=== PATIENT | male | born 1970 | race Caucasian/White ===

== ENCOUNTER 2016-10-24 22:00 | Inpatient (IN) | payer BC ==
[2016-10-24] MEDS ORDERED: DILTIAZEM 125 MG in SODIUM CHLORIDE 0.9% 100 ML IV ONE (22:02)
[2016-10-24] MEDS ORDERED: ASPIRIN 81 MG CHEW PO STA (22:02)
[2016-10-24] MEDS ORDERED: SODIUM CHLORIDE 0.9% 500 ML IV STA (22:02)
[2016-10-24] MEDS ORDERED: SODIUM CHLORIDE 0.9% 1,000 ML IV STA ×2 (22:02)
[2016-10-24] MEDS ORDERED: DILTIAZEM 5 MG/ML 5 ML VIAL IVP STA (22:02)
[2016-10-24 22:27] LABS: ALT 42 U/L (21-72); AST 36 U/L (17-59); Alkaline Phosphatase 56 U/L (38-126); Anion Gap 10 mmol/L; Blood Urea Nitrogen 21 mg/dL (9-20); Calcium 8.8 mg/dL (8.4-10.2); Carbon Dioxide 23 mmol/L (22-30); Chloride 102 mmol/L (98-107); Glucose 226 mg/dL (74-99); Magnesium 2.1 mg/dL (1.6-2.3); Non-African American GFR(MDRD) 58 (>60 ml/min/1.73 sqM); Potassium 4.1 mmol/L (3.5-5.1); Sodium 135 mmol/L (137-145); Total Bilirubin 0.8 mg/dL (0.2-1.3); Total Protein 6.8 g/dL (6.3-8.2)
[2016-10-24 22:31] LABS: INR 1.3 (<1.1); Partial Thromboplastin Time 25.8 sec (22.0-30.0)
[2016-10-24 22:39] LABS: Basophils # (A) 0.1 k/uL (0-0.2); Basophils % (A) 1 %; CH 27.8; CHCM 31.6; Eosinophils # (A) 0.1 k/uL (0-0.7); Eosinophils % (A) 1 %; HCT 47.7 % (39.0-53.0); HDW 2.39; HGB 15.2 gm/dL (13.0-17.5); Luc # (Auto) 0.17; Luc % (Auto) 1; Lymphocytes # (A) 1.5 k/uL (1.0-4.8); Lymphocytes % (A) 10 %; MCH 28.1 pg (25.0-35.0); MCHC 31.8 g/dL (31.0-37.0); MCV 88.4 fL (80.0-100.0); Mean Platelet Volume 7.7; Monocytes # (A) 0.4 k/uL (0-1.0); Monocytes % (A) 3 %; Neutrophils # (A) 12.4 k/uL (1.3-7.7); Neutrophils % (A) 85 %; RBC 5.39 m/uL (4.30-5.90); RDW 13.5 % (11.5-15.5); WBC 14.7 k/uL (3.8-10.6); WBC (Perox) 13.97
[2016-10-24 22:42] LABS: Creatine Kinase 90 U/L (55-170)
[2016-10-24 22:55] LABS: Troponin I <0.012 ng/mL (0.000-0.034)
[2016-10-24 22:56] LABS: Creatine Kinase MB 3.8 ng/mL (0.0-2.4)
--- NOTE | 2016-10-24 23:19 | ED ---
General Adult HPI - General Chief complaint: Arrhythmia/Palpitations Stated complaint: Tachycardic Time Seen by Provider: 10/24/16 22:01 Source: patient, EMS, RN notes reviewed, old records reviewed Mode of arrival: EMS Limitations: no limitations - History of Present Illness Initial comments: This is a 47-year-old male to the ED with significant SOB, weakness, and symcope event. Patient is complaining of severe shortness of breath, denying chest pain. Patient states he does have history of A. fib, has been taking all medications as prescribed, no fevers cough congestion of rate of lately, no travel history no sick contacts no change in medications. - Related Data Home Medications Medication Instructions Recorded Confirmed Edoxaban Tosylate [Savaysa] 60 mg PO DIRECTED 11/17/15 10/24/16 [place]cy 150 Mg 150 mg PO DAILY 10/24/16 10/24/16 Lutein 10 mg PO DAILY 10/24/16 10/24/16 Magnesium Oxide [Mag-Ox] 250 mg PO DAILY 10/24/16 10/24/16 [place]-3 Fatty Acids/Fish Oil [Fish 1 cap PO DAILY 10/24/16 10/24/16 Oil 1,000 mg Softgel] Potassium 99 mg PO DAILY 10/24/16 10/24/16 [place]'s Wort 300 mg PO DAILY 10/24/16 10/24/16 Allergies Allergy/AdvReac Type Severity Reaction Status Date / Time No Known Allergies Allergy Verified 10/24/16 22:14 Review of Systems ROS Statement: Those systems with pertinent positive or pertinent negative responses have been documented in the HPI. ROS Other: All systems not noted in ROS Statement are negative. Past Medical History Past Medical History: Atrial Fibrillation, CVA/TIA, Pneumonia, Thyroid Disorder Additional Past Medical History / Comment(s): STRESS TEST A FEW YEARS AGO; "minor stroke 11/2015 - stated that no residuals like weakness but left side is now more sensitive to pain and hot and cold History of Any Multi-Drug Resistant Organisms: None Reported Past Surgical History: Appendectomy, Cardiac Ablation, Heart Catheterization Additional Past Surgical History / Comment(s): cardioversion 11/2014 Past Anesthesia/Blood Transfusion Reactions: No Reported Reaction Past Psychological History: Anxiety Smoking Status: Never smoker Past Alcohol Use History: None Reported Past Drug Use History: None Reported - Past Family History Father Family Medical History: Hypertension Mother Family Medical History: AFIB, Chest Pain / Angina, Coronary Artery Disease (CAD) Additional Family Medical History / Comment(s): hx of pacemaker; mom at 39 Brother(s) Family Medical History: Coronary Artery Disease (CAD), Myocardial Infarction ([place] ), Pneumonia Additional Family Medical History / Comment(s): at age 29 General Exam Limitations: no limitations General appearance: alert, anxious, in distress Head exam: Present: atraumatic, normocephalic, normal inspection Eye exam: Present: normal appearance, PERRL, EOMI. Absent: scleral icterus, conjunctival injection, periorbital swelling ENT exam: Present: normal exam, mucous membranes moist Neck exam: Present: normal inspection. Absent: tenderness, meningismus, lymphadenopathy Respiratory exam: Present: normal lung sounds bilaterally. Absent: respiratory distress, wheezes, rales, rhonchi, stridor Cardiovascular Exam: Present: tachycardia, irregular rhythm, normal heart sounds. Absent: systolic murmur, diastolic murmur, rubs, gallop, clicks GI/Abdominal exam: Present: soft, normal bowel sounds. Absent: distended, tenderness, guarding, rebound, rigid Extremities exam: Present: normal inspection, full ROM, normal capillary refill. Absent: tenderness, pedal edema, joint swelling, calf tenderness Back exam: Present: normal inspection Neurological exam: Present: alert, oriented X3, CN II-XII intact Psychiatric exam: Present: normal affect, normal mood Skin exam: Present: warm, dry, intact, normal color. 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 No chest pain. EKG Findings - EKG Comments: EKG Findings:: EKG shows SVT rate of 160, QRS 86, QTC 511. Repeat. EKG shows sinus rhythm rate of 78, [place] 346, QRS 80, QTC 465 Medical Decision Making - Lab Data Result diagrams: 10/24/16 22:07 10/24/16 22:07 Lab Results 10/24/16 10/24/16 10/24/16 Range/Units 22:07 22:07 22:07 WBC 14.7 H (3.8-10.6) k/uL RBC 5.39 (4.30-5.90) m/uL Hgb 15.2 (13.0-17.5) gm/dL Hct 47.7 (39.0-53.0) % MCV 88.4 (80.0-100.0) fL MCH 28.1 (25.0-35.0) pg MCHC 31.8 (31.0-37.0) g/dL RDW 13.5 (11.5-15.5) % Plt Count 197 (150-450) k/uL Neutrophils % 85 % Lymphocytes % 10 % Monocytes % 3 % Eosinophils % 1 % Basophils % 1 % Neutrophils # 12.4 H (1.3-7.7) k/uL Lymphocytes # 1.5 (1.0-4.8) k/uL Monocytes # 0.4 (0-1.0) k/uL Eosinophils # 0.1 (0-0.7) k/uL Basophils # 0.1 (0-0.2) k/uL PT (9.0-12.0) sec INR (<1.1) APTT (22.0-30.0) sec Sodium 135 L (137-145) mmol/L Potassium 4.1 (3.5-5.1) mmol/L Chloride 102 (98-107) mmol/L Carbon Dioxide 23 (22-30) mmol/L Anion Gap 10 mmol/L BUN 21 H (9-20) mg/dL Creatinine 1.33 H (0.66-1.25) mg/dL Est GFR (MDRD) Af Amer >60 (>60 ml/min/1.73 sqM) Est GFR (MDRD) Non-Af 58 (>60 ml/min/1.73 sqM) Glucose 226 H (74-99) mg/dL Calcium 8.8 (8.4-10.2) mg/dL Magnesium 2.1 (1.6-2.3) mg/dL Total Bilirubin 0.8 (0.2-1.3) mg/dL AST 36 (17-59) U/L ALT 42 (21-72) U/L Alkaline Phosphatase 56 (38-126) U/L Total Creatine Kinase 90 (55-170) U/L CK-MB (CK-2) 3.8 H* (0.0-2.4) ng/mL CK-MB (CK-2) Rel Index 4.2 Troponin I <0.012 (0.000-0.034) ng/mL Total Protein 6.8 (6.3-8.2) g/dL Albumin 3.8 (3.5-5.0) g/dL Lipase 187 (23-300) U/L 10/24/16 Range/Units 22:07 WBC (3.8-10.6) k/uL RBC (4.30-5.90) m/uL Hgb (13.0-17.5) gm/dL Hct (39.0-53.0) % MCV (80.0-100.0) fL MCH (25.0-35.0) pg MCHC (31.0-37.0) g/dL RDW (11.5-15.5) % Plt Count (150-450) k/uL Neutrophils % % Lymphocytes % % Monocytes % % Eosinophils % % Basophils % % Neutrophils # (1.3-7.7) k/uL Lymphocytes # (1.0-4.8) k/uL Monocytes # (0-1.0) k/uL Eosinophils # (0-0.7) k/uL Basophils # (0-0.2) k/uL PT 13.0 H (9.0-12.0) sec INR 1.3 (<1.1) APTT 25.8 (22.0-30.0) sec Sodium (137-145) mmol/L Potassium (3.5-5.1) mmol/L Chloride (98-107) mmol/L Carbon Dioxide (22-30) mmol/L Anion Gap mmol/L BUN (9-20) mg/dL Creatinine (0.66-1.25) mg/dL Est GFR (MDRD) Af Amer (>60 ml/min/1.73 sqM) Est GFR (MDRD) Non-Af (>60 ml/min/1.73 sqM) Glucose (74-99) mg/dL Calcium (8.4-10.2) mg/dL Magnesium (1.6-2.3) mg/dL Total Bilirubin (0.2-1.3) mg/dL AST (17-59) U/L ALT (21-72) U/L Alkaline Phosphatase (38-126) U/L Total Creatine Kinase (55-170) U/L CK-MB (CK-2) (0.0-2.4) ng/mL CK-MB (CK-2) Rel Index Troponin I (0.000-0.034) ng/mL Total Protein (6.3-8.2) g/dL Albumin (3.5-5.0) g/dL Lipase (23-300) U/L Critical Care Time Critical Care Time: Yes Total Critical Care Time: 31 Disposition Clinical Impression: Atrial fibrillation with RVR, Syncope Disposition: ADMITTED IP TO THIS HOSP Condition: Fair Referrals: None,Stated [Primary Care Provider] - 1-2 days
[2016-10-24] MEDS ORDERED: MORPHINE SULFATE 4 MG/ML SYRINGE IV PRN (23:23)
[2016-10-24] MEDS ORDERED: NITROGLYCERIN SL TABS 0.4 MG TAB SUBLINGUAL PRN (23:23)
--- NOTE | 2016-10-24 23:37 | XR ---
EXAM: XR Chest, 2 Views CLINICAL HISTORY: Reason: Chest Pain TECHNIQUE: Frontal and lateral views of the chest. COMPARISON: Chest x-ray 01/05/16 FINDINGS: Lungs: No consolidation.. Pleural space: Unremarkable. No pneumothorax. Heart: Cardiomegaly. Mediastinum: Unremarkable. Bones/joints: Unremarkable. IMPRESSION: Cardiomegaly. No overt pulmonary edema. No consolidation.
[2016-10-25] MEDS ORDERED: DILTIAZEM 5 MG/ML 5 ML VIAL IVP STA (00:42)
[2016-10-25] MEDS: SODIUM CHLORIDE 0.9% 1,000 ML IV SCH ×3 (02:46→19:46)
[2016-10-25 03:02] VITALS: BMI 27.8
[2016-10-25] MEDS ORDERED: SODIUM CHLORIDE 0.9% 500 ML IV ONE (04:44)
[2016-10-25] MEDS ORDERED: ONDANSETRON 4 MG/2 ML VIAL IVP PRN (04:45)
[2016-10-25 05:00] LABS: Cholesterol 173 mg/dL (<200); HDL Cholesterol 40 mg/dL (40-60); Triglycerides 72 mg/dL (<150)
[2016-10-25 05:03] LABS: Creatine Kinase 83 U/L (55-170)
[2016-10-25 05:15] LABS: Troponin I <0.012 ng/mL (0.000-0.034)
[2016-10-25 05:16] LABS: Creatine Kinase MB 3.6 ng/mL (0.0-2.4)
[2016-10-25] MEDS ORDERED: ASPIRIN 325 MG TAB PO SCH (09:00)
[2016-10-25] MEDS ORDERED: METOPROLOL TARTRATE 50 MG TAB PO SCH (09:00)
--- NOTE | 2016-10-25 10:58 | P.CRDCN ---
History of Present Illness Consult date: 10/25/16 Requesting physician: Nicholas Burgess Consult reason: atrial fibrillation Chief complaint: Heart racing History of present illness: This is a 46-year-old gentleman patient of Dr. Falcon's, known history of prior atrial fibrillation with 3 prior ablations as well as cardioversions. History of hypothyroidism, hyperlipidemia. Patient also underwent a cardiac catheterization in the past which revealed normal coronary arteries. Most recent electrical artery eversion was performed in December of last year. Patient then was scheduled to undergo an ablation in April of last year. According to the patient, his insurance changed and therefore he lost his primary care provider, since April he has not been taking his medications , and he also did not come in for his ablation for these reasons. He is on Savaysa for anticoagulation, states that he gets an upset stomach and therefore only takes it a couple times a week. As far as all of his other medications go , he has not been on any of those since April. Echocardiogram with Doppler study which was performed in June of last year revealed an ejection fraction of 50-55%. presents to the hospital on this occasion with his heart racing very fast. He states that he was at a gas station yesterday when he noticed his heart going extremely fast. He states that on arrival home he sat down, bear down and his heart rate normalized. He then walked up to the bathroom and again took off going extremely fast. Patient again states he bear down, went back to bed and his heart rate slowed down. A third time while laying in bed his heart rate again took off, he called EMS, states then that he got up because he was nauseous, had an episode of vomiting and states that he passed out. EKG on arrival here showed a supraventricular tachycardia with a heart rate of 168. Patient was initiated on IV Cardizem drip, this morning EKG shows normal sinus rhythm with a long first-degree AV block and nonspecific ST- T wave changes. Chest x-ray reveals cardiomegaly with no overt pulmonary edema. White blood cell count 14.7, hemoglobin 15.2, potassium 4.1, BUN 21, creatinine 1.3. Troponin 0.012, 0.012. BNP level 981. At the time of my examination this morning, patient denies any chest discomfort, no difficulty in breathing, no dizziness or lightheadedness. Past Medical History Past Medical History: Atrial Fibrillation, CVA/TIA, Pneumonia, Thyroid Disorder Additional Past Medical History / Comment(s): STRESS TEST A FEW YEARS AGO; "minor stroke 11/2015 - stated that no residuals like weakness but left side is now more sensitive to pain and hot and cold History of Any Multi-Drug Resistant Organisms: None Reported Past Surgical History: Appendectomy, Cardiac Ablation, Heart Catheterization Additional Past Surgical History / Comment(s): cardioversion 11/2014 Past Anesthesia/Blood Transfusion Reactions: No Reported Reaction Past Psychological History: Anxiety Smoking Status: Never smoker Past Alcohol Use History: None Reported Past Drug Use History: None Reported - Past Family History Father Family Medical History: Hypertension Mother Family Medical History: AFIB, Chest Pain / Angina, Coronary Artery Disease (CAD) Additional Family Medical History / Comment(s): hx of pacemaker; mom at 39 Brother(s) Family Medical History: Coronary Artery Disease (CAD), Myocardial Infarction ([place] ), Pneumonia Additional Family Medical History / Comment(s): at age 29 Medications and Allergies Home Medications Medication Instructions Recorded Confirmed Type Edoxaban Tosylate [Savaysa] 60 mg PO DIRECTED 11/17/15 10/24/16 History [place] 150 Mg 150 mg PO DAILY 10/24/16 10/24/16 History Lutein 10 mg PO DAILY 10/24/16 10/24/16 History Magnesium Oxide [Mag-Ox] 250 mg PO DAILY 10/24/16 10/24/16 History [place]-3 Fatty Acids/Fish Oil [Fish 1 cap PO DAILY 10/24/16 10/24/16 History Oil 1,000 mg Softgel] Potassium 99 mg PO DAILY 10/24/16 10/24/16 History [place]'s Wort 300 mg PO DAILY 10/24/16 10/24/16 History Allergies Allergy/AdvReac Type Severity Reaction Status Date / Time No Known Allergies Allergy Verified 10/24/16 22:14 Physical Exam Vitals: Vital Signs Temp Pulse Pulse Resp BP BP Pulse Ox 10/25/16 08:00 98 F 147 H 16 100/56 100 10/25/16 03:20 152 H 14 10/25/16 02:30 146 H 16 98/71 100 10/25/16 02:17 149 H 16 90/69 100 10/25/16 02:07 145 H 16 93/70 100 10/25/16 02:01 97.9 F 149 H 18 92/67 100 10/25/16 01:50 145 H 16 98/72 100 10/25/16 01:23 97.3 F L 152 H 16 92/56 99 10/25/16 00:48 85 18 95/71 100 10/25/16 00:42 167 H 18 88/46 100 10/24/16 23:42 81 18 96/64 100 Intake and Output 10/24/16 10/25/16 10/25/16 22:59 06:59 14:59 Intake Total 900 Balance 900 Intake: IV 30 Diltiazem 125 mg In 30 Sodium Chloride 0.9% 100 ml @ 15 MG/HR 15 mls/hr IV .Q8H20M ONE Rx#: [id number] Intake, IV Titration 870 Amount Diltiazem 125 mg In 20 Sodium Chloride 0.9% 100 ml @ 15 MG/HR 15 mls/hr IV .Q8H20M ONE Rx#: [id number] Sodium Chloride 0.9% 1, 350 000 ml @ 100 mls/hr IV . Q10H MARICHUY Rx#:[id number] Sodium Chloride 0.9% 500 500 ml @ 999 mls/hr IV .Q31M ONE Rx#:[id number] Other: Weight 75.9 kg PHYSICAL EXAMINATION: HEENT: Head is atraumatic, normocephalic. Pupils equal, round. Neck is supple. There is no elevated jugular venous pressure. HEART EXAMINATION: Heart S1, S2 normal. No murmur or gallop heard. CHEST EXAMINATION: Lungs are clear to auscultation and precussion. No chest wall tenderness is noted on palpation or with deep breathing. ABDOMEN: Soft, nontender. Bowel sounds are heard. No organomegaly noted. EXTREMITIES: 2+ peripheral pulses with no evidence of peripheral edema and no calf tenderness noted. NEUROLOGIC patient is awake, alert and oriented -3. . Results 10/24/16 22:07 10/24/16 22:07 Cardiac Enzymes 10/25/16 Range/Units 04:30 CK-MB (CK-2) 3.6 H* (0.0-2.4) ng/mL Troponin I <0.012 (0.000-0.034) ng/mL Lipids 10/25/16 Range/Units 04:30 Triglycerides 72 (<150) mg/dL Cholesterol 173 (<200) mg/dL HDL Cholesterol 40 (40-60) mg/dL Current Medications Generic Name Dose Route Start Last Admin Trade Name Freq PRN Reason Stop Dose Admin Aspirin 325 mg 10/25/16 09:00 10/25/16 08:31 Aspirin PO 325 mg DAILY MARICHUY Administration Sodium Chloride 1,000 mls @ 100 mls/hr 10/24/16 23:30 10/25/16 02:46 Saline 0.9% IV Not Given .Q10H MARICHUY Metoprolol Tartrate 50 mg 10/25/16 09:00 10/25/16 08:30 Lopressor PO 50 mg BID MARICHUY Administration Morphine Sulfate 4 mg 10/24/16 23:23 Morphine Sulfate (Inj) IV Q4HR PRN Chest Pain Nitroglycerin 0.4 mg 10/24/16 23:23 10/25/16 04:30 Nitrostat SUBLINGUAL 0.4 mg Q5M PRN Administration Chest Pain Ondansetron HCl 4 mg 10/25/16 04:45 Zofran IVP Q6HR PRN Nausea And Vomiting Intake and Output 10/24/16 10/25/16 10/25/16 22:59 06:59 14:59 Intake Total 900 Balance 900 Intake: IV 30 Diltiazem 125 mg In 30 Sodium Chloride 0.9% 100 ml @ 15 MG/HR 15 mls/hr IV .Q8H20M ONE Rx#: [id number] Intake, IV Titration 870 Amount Diltiazem 125 mg In 20 Sodium Chloride 0.9% 100 ml @ 15 MG/HR 15 mls/hr IV .Q8H20M ONE Rx#: [id number] Sodium Chloride 0.9% 1, 350 000 ml @ 100 mls/hr IV . Q10H MARICHUY Rx#:[id number] Sodium Chloride 0.9% 500 500 ml @ 999 mls/hr IV .Q31M ONE Rx#:[id number] Other: Weight 75.9 kg EKG Interpretations (text) Initial EKG showed a supraventricular tachycardia, this morning's EKG shows a normal sinus rhythm with a long first-degree AV block. Assessment and Plan Plan: Assessment and plan #1 supraventricular tachycardia in a patient with known history of prior SVT and prior atrial tachycardia. Patient has history of prior ablations and electrical cardioversions. Currently in normal sinus rhythm with a long first- degree AV block. #2 noncompliance with medications, patient has not been taking his medication since April. #3 history of paroxysmal atrial fibrillation #4 hypothyroidism #5 hyperlipidemia #6 no prior documented coronary artery disease, patient did undergo cardiac catheterization in the past which revealed normal coronary arteries. Most recent echocardiogram with Doppler study was performed in December of last year which revealed a normal left ventricular systolic function. #7 acute on chronic renal insufficiency. Plan We will reinitiate the patient's Savaysa, decrease aspirin to 81 mg daily. Resume the patient's beta nany at 25 mg one tablet by mouth twice a day. Check free T4 and TSH. Repeat echocardiogram with Doppler study. Further recommendations to follow. DNP note has been reviewed, I agree with a documented findings and plan of care. Patient was seen and examined.
[2016-10-25 11:39] LABS: Creatine Kinase 70 U/L (55-170)
[2016-10-25 11:48] LABS: Troponin I <0.012 ng/mL (0.000-0.034)
[2016-10-25 11:49] LABS: Creatine Kinase MB 3.1 ng/mL (0.0-2.4)
[2016-10-25] MEDS: EDOXABAN TOSYLATE 60 MG TABLET PO SCH (13:45)
[2016-10-25] MEDS: METOPROLOL TARTRATE 25 MG TAB PO SCH ×2 (13:47→19:45)
--- NOTE | 2016-10-25 17:20 | P.HPIM ---
History of Present Illness H&P Date: 10/25/16 Chief Complaint: Heart palpitation 46-year-old male presented on the day of admission to the emergency room via the EMS system with a chief complaint of having shortness of breath weakness and heart palpitation felt like he was going to pass out. Patient does have a history of atrial fibrillation in the emergency room the patient was noted to be in atrial fibrillation heart rate was in the 160s. Patient was seen in the emergency room admitted to the services of the attending. Patient does have a history as mentioned of atrial fibrillation has undergone 3 prior ablations as well as cardioversions. Patient additionally has had a heart catheterization in the past which showed normal coronary arteries. According to the patient he had a change in his insurance and was scheduled to undergo a ablation in April 2016 but did not because he did not have insurance. According to the patient he had not been taking this medication according to the patient he also lost his primary care provider due to insurance issues. As mentioned the patient was seen in the emergency room admitted with a cardiology consultation requested. On arrival the patient's heart rate was in the 160s. The 12-lead EKG showed supraventricular tachycardia. Patient was initiated on IV Cardizem drip. The patient was being seen this morning the EKG was showing sinus rhythm rate in the 70s Review of Systems Essentially unremarkable except as mentioned in the present illness Past Medical History Past Medical History: Atrial Fibrillation, CVA/TIA, Pneumonia, Thyroid Disorder Additional Past Medical History / Comment(s): STRESS TEST A FEW YEARS AGO; "minor stroke 11/2015 - stated that no residuals like weakness but left side is now more sensitive to pain and hot and cold History of Any Multi-Drug Resistant Organisms: None Reported Past Surgical History: Appendectomy, Cardiac Ablation, Heart Catheterization Additional Past Surgical History / Comment(s): cardioversion 11/2014 Past Anesthesia/Blood Transfusion Reactions: No Reported Reaction Past Psychological History: Anxiety Smoking Status: Never smoker Past Alcohol Use History: None Reported Past Drug Use History: None Reported - Past Family History Father Family Medical History: Hypertension Mother Family Medical History: AFIB, Chest Pain / Angina, Coronary Artery Disease (CAD) Additional Family Medical History / Comment(s): hx of pacemaker; mom at 39 Brother(s) Family Medical History: Coronary Artery Disease (CAD), Myocardial Infarction ([place] ), Pneumonia Additional Family Medical History / Comment(s): at age 29 Medications and Allergies Home Medications Medication Instructions Recorded Confirmed Type Edoxaban Tosylate [Savaysa] 60 mg PO DIRECTED 11/17/15 10/24/16 History [place] 150 Mg 150 mg PO DAILY 10/24/16 10/24/16 History Lutein 10 mg PO DAILY 10/24/16 10/24/16 History Magnesium Oxide [Mag-Ox] 250 mg PO DAILY 10/24/16 10/24/16 History [place]-3 Fatty Acids/Fish Oil [Fish 1 cap PO DAILY 10/24/16 10/24/16 History Oil 1,000 mg Softgel] Potassium 99 mg PO DAILY 10/24/16 10/24/16 History [place]'s Wort 300 mg PO DAILY 10/24/16 10/24/16 History Allergies Allergy/AdvReac Type Severity Reaction Status Date / Time No Known Allergies Allergy Verified 10/24/16 22:14 Physical Exam Vitals: Vital Signs Temp Pulse Pulse Resp BP BP Pulse Ox 10/25/16 16:00 97.2 F L 68 16 100/60 98 10/25/16 12:00 98.2 F 76 16 103/67 100 10/25/16 08:00 98 F 147 H 16 100/56 100 10/25/16 03:20 152 H 14 10/25/16 02:30 146 H 16 98/71 100 10/25/16 02:17 149 H 16 90/69 100 10/25/16 02:07 145 H 16 93/70 100 10/25/16 02:01 97.9 F 149 H 18 92/67 100 10/25/16 01:50 145 H 16 98/72 100 10/25/16 01:23 97.3 F L 152 H 16 92/56 99 10/25/16 00:48 85 18 95/71 100 10/25/16 00:42 167 H 18 88/46 100 10/24/16 23:42 81 18 96/64 100 Intake and Output 10/25/16 10/25/16 10/25/16 06:59 14:59 22:59 Intake Total 900 800 Balance 900 800 Intake: IV 30 Diltiazem 125 mg In 30 Sodium Chloride 0.9% 100 ml @ 15 MG/HR 15 mls/hr IV .Q8H20M ONE Rx#: [id number] Intake, IV Titration 870 800 Amount Diltiazem 125 mg In 20 Sodium Chloride 0.9% 100 ml @ 15 MG/HR 15 mls/hr IV .Q8H20M ONE Rx#: [id number] Sodium Chloride 0.9% 1, 350 800 000 ml @ 100 mls/hr IV . Q10H [place]UY Rx#:[id number] Sodium Chloride 0.9% 500 500 ml @ 999 mls/hr IV .Q31M ONE Rx#:[id number] Other: # Voids 2 # Bowel Movements 1 Weight 75.9 kg Physical exam Gen. alert and oriented 3 pleasant cooperative denying any heart palpitations denying chest pain Heart S1-S2 audible and regular monitor sinus rhythm heart rate in the 70s Lungs essentially clear adequate air movement on room air Abdomen soft nontender reports no nausea vomiting Extremities no edema Results CBC & Chem 7: 10/24/16 22:07 10/26/16 14:34 Labs: Abnormal Lab Results - Last 24 Hours (Table) 10/25/16 10/25/16 10/25/16 Range/Units 04:30 04:30 10:41 CK-MB (CK-2) 3.6 H* 3.1 H* (0.0-2.4) ng/mL LDL Cholesterol, Calc 119 H (0-99) mg/dL Thrombosis Risk Factor Assmnt - Choose All That Apply Any of the Below Risk Factors Present?: Yes Each Factor Represents 1 point: Age 41-60 years, Obesity (BMI >25) Thrombosis Risk Factor Assessment Total Risk Factor Score: 2 Thrombosis Risk Factor Assessment Level: Low Risk Assessment and Plan Plan: Impression Present on admission shortness of breath heart palpitations suspect due to atrial fibrillation with a rapid ventricular response History of a heart catheterization in the past which showed normal coronary arteries History of prior ablations and cardioversions per heart atrial fibrillation Hypothyroid on supplements Hyperlipidemia History of paroxysmal atrial fibrillation Noncompliant with medication had not been taking medication since April 2016 Present on admission acute on chronic renal failure stage 3 Plan Resume home meds as appropriate Continue with recommendations by cardiology service Follow-up on pending thyroid studies Follow-up on echocardiogram Further recommendations pending will follow DVT and GI prophylaxsis The above dictated assessment and findings were discussed with dr kendall Nguyen and the plan of care have been dictated as directed. Jovana Veras nurse practitioner acting as a scribe for dr argueta
[2016-10-25] MEDS ORDERED: DILTIAZEM 125 MG in SODIUM CHLORIDE 0.9% 100 ML IV SCH (21:00)
[2016-10-26] MEDS ORDERED: ALPRAZolam 0.25 MG TAB PO PRN (02:41)
--- NOTE | 2016-10-26 07:06 | ECHOF ---
Referral Reason:afib MEASUREMENTS -------- HEIGHT: 165.1 cm WEIGHT: 75.7 kg BP: 100/56 IVSd: 1.3 cm (0.6 - 1.1) LVIDd: 3.6 cm (3.9 - 5.3) LVPWd: 1.2 cm (0.6 - 1.1) IVSs: 1.8 cm LVIDs: 2.0 cm LVPWs: 1.7 cm LAESV Index (A-L): 103.31 ml/m Ao Diam: 3.3 cm (2.0 - 3.7) AV Cusp: 2.3 cm (1.5 - 2.6) LA Diam: 4.4 cm (2.7 - 3.8) MV EXCURSION: 20.477 mm (> 18.000) MV EF SLOPE: 80 mm/s (70 - 150) EPSS: 0.2 cm MV E Alex: 0.94 m/s MV DecT: 309 ms MV A Alex: 0.58 m/s MV E/A Ratio: 1.63 AR PHT: 1681 ms RAP: 5.00 mmHg RVSP: 11.51 mmHg FINDINGS -------- Resting tachycardia (HR>100bpm). This was a technically good study. There is mild concentric left ventricular hypertrophy. Overall left ventricular systolic function is normal with, an EF between 55 - 60 %. The right ventricle is normal in size and function. LA is severely dilated >40 ml/m2 RA appears enlarged. Aortic valve is trileaflet and is mildly thickened. There is mild aortic regurgitation. There is trace mitral regurgitation. Trace tricuspid regurgitation present. The right ventricular systolic pressure, as measured by Doppler, is 11.51mmHg. Pulmonic valve appears structurally normal. The aortic root size is normal. The pericardium is normal. CONCLUSIONS -------- 1. Resting tachycardia (HR>100bpm). 2. There is trace mitral regurgitation. 3. Trace tricuspid regurgitation present. 4. The right ventricular systolic pressure, as measured by Doppler, is 11.51mmHg. 5. Pulmonic valve appears structurally normal. 6. The aortic root size is normal. 7. The pericardium is normal. 8. This was a technically good study. 9. There is mild concentric left ventricular hypertrophy. 10. Overall left ventricular systolic function is normal with, an EF between 55 - 60 %. 11. The right ventricle is normal in size and function. 12. LA is severely dilated >40 ml/m2 13. RA appears enlarged. 14. Aortic valve is trileaflet and is mildly thickened. 15. There is mild aortic regurgitation. [employer] ABATEMENT WORKER: Dayanara Israel RDCS
[2016-10-26] MEDS: METOPROLOL TARTRATE 25 MG TAB PO SCH ×2 (07:57→18:52)
[2016-10-26] MEDS: ASPIRIN 81 MG CHEW PO SCH (07:57)
[2016-10-26] MEDS: EDOXABAN TOSYLATE 60 MG TABLET PO SCH (07:57)
--- NOTE | 2016-10-26 11:56 | CDI ---
In responding to this query, please exercise your independent professional judgment. The [facility] Coding Staff and Clinical Documentation Specialists appreciate your assistance in clarifying documentation, maintaining compliance with coding guidelines, accurately documenting patients condition and capturing severity of illness. The fact that a question is asked does not imply that any particular answer is desired or expected. Communication forms are a method of clarifying documentation and are not made part of the Legal Health Record. Thank you in advance for your clarification. Last Revision, April 2015 Jose Luis Maya [address] [place] [address] Documentation Clarification Form Date: 10/26/2016 11:49:00 AM From: Kim Mays RN, CCDS Admit Date: 10/24/2016 11:23:00 PM Patient Name: Yannick Roberts Visit Number: [id number] Dr. Nicholas Burgess/Jovana Veras CNP History/Risk Factors: 01/05/16 Patients baseline BUN/CR/GFR:30/1. Patient presents with a BUN/CR/GFR of: 21/1.33/58 Clinical Indicators: 10/25 Cardiology Consult: "Acute on chronic renal insuffiency." Treatment: IVF: 2L IVF Bolus followed by 100 cc/hr In order to capture the severity of condition, please clarify if the condition signifies: Acute renal failure Please specify (if known): Cortical, Medullary, or Tubular Necrosis? Acute kidney injury Acute on chronic renal failure Chronic renal failure, please stage Chronic kidney disease (CKD) and please stage Stage 1 GFR >90 Stage 2 GFR 60-89 Stage 3 GFR 30-59 Stage 4 GFR 15-29 Stage 5 GFR <15 ESRD Unable to determine Other, specify Please document in your progress notes and discharge summary in order to capture severity of illness and risk of mortality. Include clinical findings that support your diagnosis. FYI: Press F11 to launch patient chart. Place X here if this finding has no clinical significance, is not applicable or if you are not able to provide any additional documentation. MTDD
[2016-10-26] MEDS ORDERED: DILTIAZEM 5 MG/ML 5 ML VIAL IVP STA (13:17)
[2016-10-26] MEDS: SODIUM CHLORIDE 0.9% 1,000 ML IV SCH ×2 (14:02→18:52)
[2016-10-26] MEDS: DILTIAZEM 125 MG in SODIUM CHLORIDE 0.9% 100 ML IV SCH ×2 (14:04→23:23)
--- NOTE | 2016-10-26 14:11 | XR ---
EXAMINATION TYPE: XR chest 2V DATE OF EXAM: 10/26/2016 1:41 PM COMPARISON: NONE TECHNIQUE: PA and lateral views submitted. HISTORY: Shortness of breath FINDINGS: The lungs are clear and there is no pneumothorax, pleural effusion, or focal pneumonia. Heart is en larged. Mild degenerative change of the spine. Interstitium stable. Linear changes right lung base ty pical of atelectasis. IMPRESSION: 1. No acute process.
--- NOTE | 2016-10-26 14:26 | P.PN ---
Subjective Principal diagnosis: Graham lorenzo This is a 46-year-old gentleman patient of Dr. Powell's, known history of prior atrial fibrillation with 3 prior ablations as well as cardioversions. History of hypothyroidism, hyperlipidemia. Patient also underwent a cardiac catheterization in the past which revealed normal coronary arteries. Most recent electrical artery eversion was performed in December of last year. Patient then was scheduled to undergo an ablation in April of last year. According to the patient, his insurance changed and therefore he lost his primary care provider, since April he has not been taking his medications , and he also did not come in for his ablation for these reasons. He is on Savaysa for anticoagulation, states that he gets an upset stomach and therefore only takes it a couple times a week. As far as all of his other medications go , he has not been on any of those since April. Echocardiogram with Doppler study which was performed in June of last year revealed an ejection fraction of 50-55%. presents to the hospital on this occasion with his heart racing very fast. Patient was found to be in atrial fibrillation with rapid ventricular response. He was reinitiated yesterday on his Savaysa, he was also started on a Cardizem drip, throughout the night his heart rate went up into the 140s to 150s, at the time of my examination this morning her heart rate continued to be in the 140s. He was given an additional IV bolus of Cardizem and IV Cardizem drip dose was increased to 15. TSH level was normal. No lab data today. She did complain of feeling mildly short of breath today did not reveal any significant findings. Objective - Vital Signs Vital signs: Vital Signs Temp 97.5 F L 10/26/16 12:00 Pulse 130 H 10/26/16 12:00 Resp 16 10/26/16 12:00 BP 106/71 10/26/16 12:00 Pulse Ox 98 10/26/16 12:00 Intake & Output 10/25/16 10/26/16 10/26/16 18:59 06:59 18:59 Intake Total 1040 360 Balance 1040 360 Weight 78.9 kg Intake: Intake, IV Titration 800 Amount Sodium Chloride 0.9% 1, 800 000 ml @ 100 mls/hr IV . Q10H [facility] Rx#:[id number] Oral 240 360 Other: Voiding Method Toilet Toilet Urinal Urinal # Voids 2 2 # Bowel Movements 1 - Exam PHYSICAL EXAMINATION: HEENT: Head is atraumatic, normocephalic. Pupils equal, round. Neck is supple. There is no elevated jugular venous pressure. HEART EXAMINATION: Heart S1, S2 normal. No murmur or gallop heard. CHEST EXAMINATION: Lungs are clear to auscultation and precussion. No chest wall tenderness is noted on palpation or with deep breathing. ABDOMEN: Soft, nontender. Bowel sounds are heard. No organomegaly noted. EXTREMITIES: 2+ peripheral pulses with no evidence of peripheral edema and no calf tenderness noted. NEUROLOGIC patient is awake, alert and oriented -3. - Labs CBC & Chem 7: 10/24/16 22:07 10/24/16 22:07 Assessment and Plan Plan: Assessment and plan #1 Atrial tachycardia in a patient with known history of prior SVT and prior atrial tachycardia. Patient has history of prior ablations and electrical cardioversions. Currently in normal sinus rhythm with a long first-degree AV block. #2 noncompliance with medications, patient has not been taking his medication since April. #3 history of paroxysmal atrial fibrillation #4 hypothyroidism #5 hyperlipidemia #6 no prior documented coronary artery disease, patient did undergo cardiac catheterization in the past which revealed normal coronary arteries. Most recent echocardiogram with Doppler study was performed in December of last year which revealed a normal left ventricular systolic function. #7 acute on chronic renal insufficiency. Plan We will give the patient an additional bolus of IV Cardizem and increase the drip to 15 mg per hour. Continue other current medications. DNP note has been reviewed, I agree with a documented findings and plan of care. Patient was seen and examined.
[2016-10-26 15:14] LABS: Anion Gap 7 mmol/L; Blood Urea Nitrogen 22 mg/dL (9-20); Calcium 8.4 mg/dL (8.4-10.2); Carbon Dioxide 21 mmol/L (22-30); Chloride 110 mmol/L (98-107); Glucose 94 mg/dL (74-99); Non-African American GFR(MDRD) >60 (>60 ml/min/1.73 sqM); Sodium 138 mmol/L (137-145)
[2016-10-26 15:25] LABS: Potassium 5.5 mmol/L (3.5-5.1)
[2016-10-27] MEDS: DILTIAZEM 125 MG in SODIUM CHLORIDE 0.9% 100 ML IV SCH ×3 (00:53→22:11)
[2016-10-27] MEDS: SODIUM CHLORIDE 0.9% 1,000 ML IV SCH ×4 (06:53→17:02)
[2016-10-27 07:20] LABS: Basophils % (A) 0 %; CH 27.9; CHCM 31.9; Eosinophils # (A) 0.3 k/uL (0-0.7); Eosinophils % (A) 3 %; HCT 46.1 % (39.0-53.0); HDW 2.49; HGB 14.4 gm/dL (13.0-17.5); Luc # (Auto) 0.16; Luc % (Auto) 2; Lymphocytes # (A) 2.1 k/uL (1.0-4.8); Lymphocytes % (A) 20 %; MCH 27.5 pg (25.0-35.0); MCHC 31.3 g/dL (31.0-37.0); MCV 88.1 fL (80.0-100.0); Mean Platelet Volume 7.7; Monocytes # (A) 0.6 k/uL (0-1.0); Monocytes % (A) 5 %; Neutrophils # (A) 7.6 k/uL (1.3-7.7); Neutrophils % (A) 71 %; RBC 5.24 m/uL (4.30-5.90); RDW 13.8 % (11.5-15.5); WBC 10.7 k/uL (3.8-10.6); WBC (Perox) 10.98
[2016-10-27 07:47] LABS: ALT 75 U/L (21-72); AST 52 U/L (17-59); Alkaline Phosphatase 45 U/L (38-126); Anion Gap 6 mmol/L; Blood Urea Nitrogen 17 mg/dL (9-20); Calcium 8.5 mg/dL (8.4-10.2); Carbon Dioxide 25 mmol/L (22-30); Chloride 109 mmol/L (98-107); Glucose 88 mg/dL (74-99); Magnesium 1.9 mg/dL (1.6-2.3); Non-African American GFR(MDRD) >60 (>60 ml/min/1.73 sqM); Potassium 4.3 mmol/L (3.5-5.1); Sodium 140 mmol/L (137-145); Total Bilirubin 0.6 mg/dL (0.2-1.3); Total Protein 6.1 g/dL (6.3-8.2)
[2016-10-27] MEDS: ASPIRIN 81 MG CHEW PO SCH (08:45)
[2016-10-27] MEDS: EDOXABAN TOSYLATE 60 MG TABLET PO SCH (08:45)
[2016-10-27] MEDS: METOPROLOL TARTRATE 25 MG TAB PO SCH ×2 (08:45→20:04)
--- NOTE | 2016-10-27 12:12 | P.PN ---
Subjective Principal diagnosis: 46-year-old seen and examined this morning. The monitor currently shows atrial fibrillation. Patient did have episodes of increased heart rate in the 90s to 100s this morning. Patients being followed by cardiology service. Patient does have a history of prior atrial fibrillation with 3 prior ablations as well as cardioversions done by dr delbert robles. Additionally patient has had a history of having a heart catheterization which showed normal coronary arteries. Patient was scheduled to undergo an ablation in April 2016. According to the patient his insurance changed and he lost his primary care provider since April the patient had not been taking any of his medication. He stated that he did not come in for the ablation is scheduled to see had no insurance. Additionally the patient stated his anticoagulation on savaysa don' t take a couple times a week because it upset his stomach and all of his other medications he did not take. Patient did have an echocardiogram done in June last year did show an ejection fraction of 50 to 55%. On admission the patient's monitor showed atrial fibrillation with a rapid ventricular response the patient was started on IV Cardizem drip and follow closely by cardiology service Objective - Vital Signs Vital signs: Vital Signs Temp 97.6 F 10/27/16 08:00 Pulse 92 10/27/16 08:00 Resp 18 10/27/16 08:00 BP 111/74 10/27/16 08:00 Pulse Ox 99 10/27/16 08:00 Intake & Output 10/26/16 10/27/16 10/27/16 18:59 06:59 18:59 Intake Total 480 1527.5 240 Output Total 600 Balance -120 1527.5 240 Weight 82 kg Intake: IV 1380 Diltiazem 125 mg In 180 Sodium Chloride 0.9% 100 ml @ 15 MG/HR 15 mls/hr IV .Q8H20M [facility] Rx#: [id number] Sodium Chloride 0.9% 1, 1200 000 ml @ 100 mls/hr IV . Q10H [facility] Rx#:[id number] Intake, IV Titration 147.5 Amount Diltiazem 125 mg In 147.5 Sodium Chloride 0.9% 100 ml @ 15 MG/HR 15 mls/hr IV .Q8H20M [facility] Rx#: [id number] Oral 480 240 Output: Urine 600 Other: Voiding Method Toilet Toilet Urinal Urinal # Voids 2 1 # Bowel Movements 0 - Exam Physical exam 46-year-old male resting in bed appears in no acute distress. Denies dizziness lightheadedness Lungs essentially clear adequate air movement Heart S1-S2 audible and irregular monitor currently is atrial fibrillation heart rate in the 90s Abdomen soft nontender Extremities no edema noted - Labs CBC & Chem 7: 10/27/16 06:30 10/27/16 06:30 Labs: Abnormal Lab Results - Last 24 Hours (Table) 10/26/16 10/27/16 10/27/16 Range/Units 14:34 06:30 06:30 WBC 10.7 H (3.8-10.6) k/uL Potassium 5.5 H (3.5-5.1) mmol/L Chloride 110 H 109 H (98-107) mmol/L Carbon Dioxide 21 L (22-30) mmol/L BUN 22 H (9-20) mg/dL ALT 75 H (21-72) U/L Total Protein 6.1 L (6.3-8.2) g/dL Albumin 3.4 L (3.5-5.0) g/dL Assessment and Plan Plan: Impression Present on admission shortness of breath heart palpitations suspect due to atrial fibrillation with a rapid ventricular response History of a heart catheterization in the past which showed normal coronary arteries History of prior ablations and cardioversions for atrial fibrillation Hypothyroid on supplements Hyperlipidemia History of paroxysmal atrial fibrillation Noncompliant with medication had not been taking medication since April 2016 Present on admission acute on chronic renal failure stage 3 Echocardiogram this admission left ventricular systolic function normal with an EF between 55 and 60% Plan Resume home meds as appropriate Continue with recommendations by cardiology service Further recommendations pending will follow DVT and GI prophylaxsis The above dictated assessment and findings were discussed with dr argueta Impression and the plan of care have been dictated as directed. Jovana Veras nurse practitioner acting as a scribe for dr argueta
--- NOTE | 2016-10-27 14:27 | P.PN ---
Subjective Principal diagnosis: Atrial Tachycardia This is a pleasant 46-year-old gentleman who follows with Dr. Falcon in the office. He has a known history of atrial fibrillation, atrial tachycardia and 3 prior ablations as well as cardioversions in the past. History of hypothyroidism, hyperlipidemia. The patient he had been scheduled to undergo an ablation in April 2016, had an insurance change and loss his primary care physician and was unable to have this procedure done. He also ran out of his medications and therefore was not taking anything except for "vitamins". He was taking his Savaysa a couple times a week, said it causes stomach upset. Patient into the emergency department with a supraventricular tachycardia. Since his rate has slowed it appears the patient has atrial tachycardia. On Cardizem IV drip at 15 mg an hour. His TSH was normal. His rate has been fairly well controlled. Upon examination today, patient is resting comfortably in bed. He does feel quite a bit better with better control of his heart rates. He denies complaints of shortness of breath however did feel dizzy when he got up to the bathroom at one time and his heart rate was elevated. Objective - Vital Signs Vital signs: Vital Signs Temp 97.6 F 10/27/16 08:00 Pulse 92 10/27/16 12:00 Resp 18 10/27/16 12:00 BP 112/77 10/27/16 12:00 Pulse Ox 97 10/27/16 12:00 Intake & Output 10/26/16 10/27/16 10/27/16 18:59 06:59 18:59 Intake Total 480 1527.5 365 Output Total 600 Balance -120 1527.5 365 Weight 82 kg Intake: IV 1380 Diltiazem 125 mg In 180 Sodium Chloride 0.9% 100 ml @ 15 MG/HR 15 mls/hr IV .Q8H20M [facility] Rx#: [id number] Sodium Chloride 0.9% 1, 1200 000 ml @ 100 mls/hr IV . Q10H [facility] Rx#:[id number] Intake, IV Titration 147.5 125 Amount Diltiazem 125 mg In 147.5 125 Sodium Chloride 0.9% 100 ml @ 15 MG/HR 15 mls/hr IV .Q8H20M [facility] Rx#: [id number] Oral 480 240 Output: Urine 600 Other: Voiding Method Toilet Toilet Urinal Urinal # Voids 2 1 # Bowel Movements 0 - Exam PHYSICAL EXAMINATION: HEENT: Head is atraumatic, normocephalic. Pupils equal, round. Neck is supple. There is no elevated jugular venous pressure. HEART EXAMINATION: Heart sounds regular, S1 and S2 normal. No murmur or gallop heard. CHEST EXAMINATION: Lungs are clear to auscultation and precussion. No chest wall tenderness is noted on palpation or with deep breathing. ABDOMEN: Soft, nontender. Bowel sounds are heard. No organomegaly noted. EXTREMITIES: 2+ peripheral pulses with no evidence of peripheral edema and no calf tenderness noted. NEUROLOGIC patient is awake, alert and oriented x3. . - Labs CBC & Chem 7: 10/27/16 06:30 10/27/16 06:30 Labs: Abnormal Lab Results - Last 24 Hours (Table) 10/26/16 10/27/16 10/27/16 Range/Units 14:34 06:30 06:30 WBC 10.7 H (3.8-10.6) k/uL Potassium 5.5 H (3.5-5.1) mmol/L Chloride 110 H 109 H (98-107) mmol/L Carbon Dioxide 21 L (22-30) mmol/L BUN 22 H (9-20) mg/dL ALT 75 H (21-72) U/L Total Protein 6.1 L (6.3-8.2) g/dL Albumin 3.4 L (3.5-5.0) g/dL Assessment and Plan Plan: Assessment and plan 1 atrial tachycardia #2 noncompliance with medication #3 history of paroxysmal atrial fibrillation #4 hypothyroidism #5 hyperlipidemia #6 acute on chronic renal insufficiency At this time we will continue IV Cardizem at current rate of 15 mg per hour. Continue beta-nany and Savaysa. We will consult with Dr. Powell. Further recommendations to follow. ANSWERING SERVICE OPERATOR note has been reviewed, I agree with a documented findings and plan of care. Patient was seen and examined.
[2016-10-27 19:46] VITALS: RESP 16
[2016-10-28] MEDS: DILTIAZEM 125 MG in SODIUM CHLORIDE 0.9% 100 ML IV SCH ×2 (06:44→08:28)
[2016-10-28 07:02] LABS: ALT 63 U/L (21-72); AST 37 U/L (17-59); Alkaline Phosphatase 52 U/L (38-126); Anion Gap 10 mmol/L; Blood Urea Nitrogen 13 mg/dL (9-20); Calcium 9.3 mg/dL (8.4-10.2); Carbon Dioxide 24 mmol/L (22-30); Chloride 107 mmol/L (98-107); Glucose 96 mg/dL (74-99); Non-African American GFR(MDRD) >60 (>60 ml/min/1.73 sqM); Potassium 3.9 mmol/L (3.5-5.1); Sodium 141 mmol/L (137-145); Total Bilirubin 0.8 mg/dL (0.2-1.3); Total Protein 6.5 g/dL (6.3-8.2)
[2016-10-28] MEDS: METOPROLOL TARTRATE 25 MG TAB PO SCH (08:27)
[2016-10-28] MEDS: ASPIRIN 81 MG CHEW PO SCH (08:27)
[2016-10-28] MEDS: EDOXABAN TOSYLATE 60 MG TABLET PO SCH (08:27)
--- NOTE | 2016-10-28 12:14 | P.PN ---
Subjective Principal diagnosis: Atrial Tachycardia This is a pleasant 46-year-old gentleman who follows with Dr. Falcon in the office. He has a known history of atrial fibrillation, atrial tachycardia and 3 prior ablations as well as cardioversions in the past. History of hypothyroidism, hyperlipidemia. The patient he had been scheduled to undergo an ablation in April 2016, had an insurance change and loss his primary care physician and was unable to have this procedure done. He also ran out of his medications and therefore was not taking anything except for "vitamins". He was taking his Savaysa a couple times a week, said it causes stomach upset. Patient into the emergency department with a supraventricular tachycardia. Since his rate slowed it appears the patient has atrial tachycardia. On Cardizem IV drip at 15 mg an hour. His TSH was normal. He is currently maintaining sinus rhythm Upon examination today, patient is resting comfortably in bed. He does feel quite a bit better. He denies complaints of shortness of breath or chest discomfort. Objective - Vital Signs Vital signs: Vital Signs Temp 97.4 F L 10/28/16 08:00 Pulse 97 10/28/16 08:00 Resp 16 10/28/16 08:00 BP 116/76 10/28/16 08:00 Pulse Ox 98 10/28/16 08:00 Intake & Output 10/27/16 10/28/16 10/28/16 18:59 06:59 18:59 Intake Total 1650 667.25 386 Output Total 1250 1200 Balance 400 -532.75 386 Weight 76.4 kg Intake: IV 105 420 Diltiazem 125 mg In 105 180 Sodium Chloride 0.9% 100 ml @ 15 MG/HR 15 mls/hr IV .Q8H20M [facility] Rx#: [id number] Sodium Chloride 0.9% 1, 240 000 ml @ 20 mls/hr IV . Q24H [facility] Rx#:[id number] Intake, IV Titration 825 247.25 26 Amount Diltiazem 125 mg In 125 247.25 26 Sodium Chloride 0.9% 100 ml @ 15 MG/HR 15 mls/hr IV .Q8H20M [facility] Rx#: [id number] Sodium Chloride 0.9% 1, 700 000 ml @ 100 mls/hr IV . Q10H [facility] Rx#:[id number] Oral 720 360 Output: Urine 1250 1200 Other: Voiding Method Toilet Toilet Urinal Urinal # Voids 5 2 # Bowel Movements 0 - Exam PHYSICAL EXAMINATION: HEENT: Head is atraumatic, normocephalic. Pupils equal, round. Neck is supple. There is no elevated jugular venous pressure. HEART EXAMINATION: Heart sounds regular, S1 and S2 normal. No murmur or gallop heard. CHEST EXAMINATION: Lungs are clear to auscultation and precussion. No chest wall tenderness is noted on palpation or with deep breathing. ABDOMEN: Soft, nontender. Bowel sounds are heard. No organomegaly noted. EXTREMITIES: 2+ peripheral pulses with no evidence of peripheral edema and no calf tenderness noted. NEUROLOGIC patient is awake, alert and oriented x3. . - Labs CBC & Chem 7: 10/27/16 06:30 10/28/16 06:05 Assessment and Plan Plan: Assessment and plan 1 atrial tachycardia, currently maintaining sinus rhythm #2 noncompliance with medication #3 history of paroxysmal atrial fibrillation #4 hypothyroidism #5 hyperlipidemia #6 acute on chronic renal insufficiency At this time we will stop IV Cardizem. Increase beta-nany. He does complain of GI upset on Savaysa, therefore we will check coverage for Eliquis. We will consult with Dr. Powell. Further recommendations to follow. AUTOMOTIVE PRODUCT SPECIALIST note has been reviewed, I agree with a documented findings and plan of care. Patient was seen and examined.
--- NOTE | 2016-10-28 14:08 | PN ---
The patient remains on medication, Lopressor., Savaysa, Xanax and aspirin. He is awaiting for cardiology to see him for possible cardiac ablation. Chest x-ray shows no pneumonia or infiltrate and no acute process from 10/26/16. VITAL SIGNS: Temperature 97.5 pulse is 90s to 100s, respiratory rate 12 to 16, blood pressure 115 to 120 over 70s to 80s. CARDIOVASCULAR: S1 and S2. LUNGS: Transmitted upper airway sounds. HEMATOLOGIC: Negative Homans. PSYCH: Fair mood and affect. NEUROLOGIC: Alert and oriented x3 ASSESSMENT: 1. Atrial tachycardia. 2. Hypothyroidism. 3. Dyslipidemia. ( ) to be seen by Dr. Powell record cutter today. Discussed the case with cardiac nurse, Livia Guerrero and patient will possibly have cardiac ablation in the near future.
[2016-10-28] MEDS: SODIUM CHLORIDE 0.9% 1,000 ML IV SCH (18:23)
[2016-10-28] MEDS: METOPROLOL TARTRATE 50 MG TAB PO SCH (20:06)
[2016-10-29] MEDS: METOPROLOL TARTRATE 50 MG TAB PO SCH (07:34)
[2016-10-29] MEDS: ASPIRIN 81 MG CHEW PO SCH (07:34)
[2016-10-29] MEDS: EDOXABAN TOSYLATE 60 MG TABLET PO SCH (07:35)
--- NOTE | 2016-10-29 09:17 | P.CRDCN ---
History of Present Illness Chief complaint: svt, symptomatic History of present illness: 46-year-old male patient who presented with shortness of breath and weakness and palpitations and being very dizzy. He was found to be in an atrial tachycardia/SVT at 160 beats a minute He stated he was not feeling well and he felt very dizzy and very short of breath Past medical history Hypertrophic cardio myopathy Isolation of the right-sided veins only with atrial tachycardia ablation History of TIA History of thyroid disorder History of normal coronary arteries in the past Review of first-degree AV block Gen. noncompliance both with medications and with follow-up Medications He takes Savaysa every 3 days he takes lots of vitamins Known drug ALLERGIES Review of systems: No fever chills or rigors, no cough, phlegm or expectoration , no nausea, vomiting or diarrhea, no hematuria, dysuria, no musculoskeletal complaints, no strokes or seizures, no skin lesions. They he feels better. He is not short of breath he is not dizzy he is lying comfortably in bed, working on a computer 2-D echo shows left ventricular hypertrophy and preserved systolic function Twelve-lead ECG shows supraventricular tachycardia, clear cut atrial activity On examination Afebrile, pulse rate in the 90s, blood pressure 115/80 mmHg Heart sounds S1 and S2 are normal no murmurs Breath sounds are normal Abdomen soft nontender Extremities are warm no edema Impression Symptomatic SVT/atrial tachycardia History of hypertrophic cardio myopathy First-degree AV block Family history of heart failure Noncompliance with medications as well as rib follow-up Creatinine clearance in the 70s Suggest Continue anticoagulation If he has lower GI bleeding problems, aspirin should be stopped Continue metoprolol. However he has a first-degree AV block and he has recurrent SVT and I would advise him to proceed with an SVT ablation This is most likely an atrial tachycardia I'll schedule the procedure for him However he needs to take Savaysa for at least 4 weeks prior to the procedure He should be on lifelong anticoagulation Past Medical History Past Medical History: Atrial Fibrillation, CVA/TIA, Pneumonia, Thyroid Disorder Additional Past Medical History / Comment(s): STRESS TEST A FEW YEARS AGO; "minor stroke 11/2015 - stated that no residuals like weakness but left side is now more sensitive to pain and hot and cold History of Any Multi-Drug Resistant Organisms: None Reported Past Surgical History: Appendectomy, Cardiac Ablation, Heart Catheterization Additional Past Surgical History / Comment(s): cardioversion 11/2014 Past Anesthesia/Blood Transfusion Reactions: No Reported Reaction Past Psychological History: Anxiety Smoking Status: Never smoker Past Alcohol Use History: None Reported Past Drug Use History: None Reported - Past Family History Father Family Medical History: Hypertension Mother Family Medical History: AFIB, Chest Pain / Angina, Coronary Artery Disease (CAD) Additional Family Medical History / Comment(s): hx of pacemaker; mom at 39 Brother(s) Family Medical History: Coronary Artery Disease (CAD), Myocardial Infarction ([place] ), Pneumonia Additional Family Medical History / Comment(s): at age 29 Medications and Allergies Home Medications Medication Instructions Recorded Confirmed Type RX: Edoxaban Tosylate [Savaysa] 60 mg PO DIRECTED 11/17/15 10/24/16 History [place] 150 Mg 150 mg PO DAILY 10/24/16 10/24/16 History Magnesium Oxide [Mag-Ox] 250 mg PO DAILY 10/24/16 10/24/16 History [place]-3 Fatty Acids/Fish Oil [Fish 1 cap PO DAILY 10/24/16 10/24/16 History Oil 1,000 mg Softgel] RX: Lutein 10 mg PO DAILY 10/24/16 10/24/16 History RX: Potassium 99 mg PO DAILY 10/24/16 10/24/16 History RX: [employer] Wort 300 mg PO DAILY 10/24/16 10/24/16 History Allergies Allergy/AdvReac Type Severity Reaction Status Date / Time No Known Allergies Allergy Verified 10/24/16 22:14 Physical Exam Vitals: Vital Signs Temp Pulse Pulse Resp BP Pulse Ox 10/29/16 07:40 94 16 10/29/16 07:37 97.8 F 93 16 115/80 98 10/29/16 04:00 97.6 F 96 16 104/74 97 10/29/16 00:00 97.7 F 93 16 90/59 95 10/28/16 20:02 98.3 F 116 H 16 114/72 97 10/28/16 15:46 97.6 F 94 16 113/75 98 10/28/16 15:44 94 16 10/28/16 12:00 97.5 F L 95 95 16 115/81 98 Intake and Output 10/28/16 10/29/16 10/29/16 22:59 06:59 14:59 Intake Total 260 Balance 260 Intake: Oral 260 Other: Voiding Method Toilet Toilet Toilet Urinal Urinal Urinal # Voids 0 0 Weight 75.1 kg Results 10/27/16 06:30 10/28/16 06:05 Current Medications Generic Name Dose Route Start Last Admin Trade Name Freq PRN Reason Stop Dose Admin Alprazolam 0.25 mg 10/26/16 02:41 10/26/16 02:59 Xanax PO 0.25 mg QID PRN Administration Anxiety Aspirin 81 mg 10/26/16 09:00 10/29/16 07:34 Aspirin PO 81 mg DAILY MARICHUY Administration Edoxaban 60 mg 10/25/16 11:15 10/29/16 07:35 Savaysa PO 60 mg DAILY MARICHUY Administration Sodium Chloride 1,000 mls @ 20 mls/hr 10/27/16 15:00 10/28/16 18:23 Saline 0.9% IV 20 mls/hr .Q24H MARICHUY Administration Metoprolol Tartrate 50 mg 10/28/16 09:55 10/29/16 07:34 Lopressor PO 50 mg BID MARICHUY Administration Morphine Sulfate 4 mg 10/24/16 23:23 Morphine Sulfate (Inj) IV Q4HR PRN Chest Pain Nitroglycerin 0.4 mg 10/24/16 23:23 10/25/16 04:30 Nitrostat SUBLINGUAL 0.4 mg Q5M PRN Administration Chest Pain Ondansetron HCl 4 mg 10/25/16 04:45 Zofran IVP Q6HR PRN Nausea And Vomiting Intake and Output 10/28/16 10/29/16 10/29/16 22:59 06:59 14:59 Intake Total 260 Balance 260 Intake: Oral 260 Other: Voiding Method Toilet Toilet Toilet Urinal Urinal Urinal # Voids 0 0 Weight 75.1 kg 10/27/16 06:30 10/28/16 06:05
--- NOTE | 2016-10-29 10:09 | P.PN ---
Subjective Principal diagnosis: Paroxysmal atrial fibrillation This is a pleasant 46-year-old gentleman with a past medical history significant for paroxysmal atrial fibrillation as well as history of thyroid disorder was admitted to the hospital with A. maura with RVR and was converted to normal sinus mechanism. He has been maintaining normal sinus mechanism. He denies having any chest pain or discomfort or difficulty breathing. The patient was seen and evaluated today by Dr. Powell and he is going to have an ablation done in the next few weeks. Objective - Vital Signs Vital signs: Vital Signs Temp 97.8 F 10/29/16 07:37 Pulse 94 10/29/16 07:40 Resp 16 10/29/16 07:40 BP 115/80 10/29/16 07:37 Pulse Ox 98 10/29/16 07:37 Intake & Output 10/28/16 10/29/16 10/29/16 18:59 06:59 18:59 Intake Total 876 Balance 876 Weight 75.1 kg Intake: IV 230 Diltiazem 125 mg In 70 Sodium Chloride 0.9% 100 ml @ 15 MG/HR 15 mls/hr IV .Q8H20M MARICHUY Rx#: [id number] Sodium Chloride 0.9% 1, 160 000 ml @ 20 mls/hr IV . Q24H MARICHUY Rx#:[id number] Intake, IV Titration 26 Amount Diltiazem 125 mg In 26 Sodium Chloride 0.9% 100 ml @ 15 MG/HR 15 mls/hr IV .Q8H20M MARICHUY Rx#: [id number] Oral 620 Other: Voiding Method Toilet Toilet Toilet Urinal Urinal Urinal # Voids 0 - Constitutional General appearance: Present: no acute distress - Respiratory Respiratory: bilateral: CTA - Cardiovascular Rhythm: regular Heart sounds: normal: S1 - Labs CBC & Chem 7: 10/27/16 06:30 10/28/16 06:05 Assessment and Plan Plan: Assessment #1 paroxysmal atrial fibrillation #2 noncompliance with medications #3 hypothyroidism Plan #1 the patient can be discharged home #2 he is going to have an ablation in the next few weeks
[2016-10-29 16:42] VITALS: BP 116/76; TEMP 97.4
[2016-10-29 16:45] VITALS: PULSE 97
--- NOTE | 2016-12-05 09:13 | DS ---
DATE OF ADMISSION: 10/24/2016 DATE OF DISCHARGE: 10/29/2016 DISCHARGE MEDICATIONS: 1. Savaysa 60 mg daily. 2. [place]-3 fatty acids daily. 3. Mallory's Wort daily. 4. Darcy daily. 5. Magnesium oxide 250 daily. 6. Lutein 10 mg daily. 7. Potassium 99 mg daily. CONDITION: Stable. PROGNOSIS: Guarded. Ambulate as tolerated. Patient as admitted with paroxysmal atrial fibrillation and a thyroid disorder. He was seen for multiple times of shortness of breath and intermittent atrial fibrillation. Cardiac ablation will need to be done as an outpatient. The patient to follow up as an outpatient. Cardiology medication was figured out with this patient and stabilized from cardiac standpoint after having recurrent chest pain and atrial fibrillation and waiting for Dr. Powell to evaluate the patient to seen when he was going to ( ).
== END 2016-10-29 16:52 | disposition home or self-care (01) | DRG 309 ==
LOC: SUPCPDRO 22:00 → EC 22:00 → 6SEL 23:23
PROVIDERS: ADMIT Family Medicine; ATTEND Family Medicine
DX: I48.0 Paroxysmal atrial fibrillation (principal); N17.9 Acute kidney failure, unspecified; N18.3 Chronic kidney disease, stage 3 (moderate); E03.9 Hypothyroidism, unspecified; I42.2 Other hypertrophic cardiomyopathy; I47.1 Supraventricular tachycardia; E78.5 Hyperlipidemia, unspecified; F41.9 Anxiety disorder, unspecified; I44.0 Atrioventricular block, first degree; Z79.01 Long term (current) use of anticoagulants; Z79.899 Other long term (current) drug therapy; Z91.14 Patient's other noncompliance with medication regimen; Z91.19 Patient's noncompliance with other medical treatment and regimen; Z86.73 Personal history of transient ischemic attack (TIA), and cerebral infarction without residual deficits; Z82.49 Family history of ischemic heart disease and other diseases of the circulatory system
CPT/HCPCS: 36415; 71020; 80048; 80053; 80061; 82550; 82553; 83690; 83735; 83880; 84443; 84484; 85025; 85610; 85730; 93005; 93306; 96365; 96366; 96376; 99291

== ENCOUNTER 2016-11-03 00:14 | Inpatient (IN) | payer BC ==
[2016-11-03] MEDS ORDERED: SODIUM CHLORIDE 0.9% 1,000 ML IV STA (00:38)
[2016-11-03] MEDS ORDERED: ASPIRIN 81 MG CHEW PO STA (00:38)
[2016-11-03] MEDS ORDERED: MIDAZOLAM (PF) 1 MG/ML 5 ML VIAL IV STA (00:45)
[2016-11-03 00:48] LABS: Basophils # (A) 0.1 k/uL (0-0.2); Basophils % (A) 1 %; CH 28.1; CHCM 31.9; Eosinophils # (A) 0.5 k/uL (0-0.7); Eosinophils % (A) 4 %; HDW 2.52; HGB 14.9 gm/dL (13.0-17.5); Luc # (Auto) 0.36; Luc % (Auto) 4; Lymphocytes # (A) 4.1 k/uL (1.0-4.8); Lymphocytes % (A) 40 %; MCH 28.1 pg (25.0-35.0); MCHC 31.6 g/dL (31.0-37.0); MCV 88.7 fL (80.0-100.0); Mean Platelet Volume 7.2; Monocytes # (A) 0.6 k/uL (0-1.0); Monocytes % (A) 6 %; Neutrophils # (A) 4.6 k/uL (1.3-7.7); Neutrophils % (A) 45 %; RBC 5.29 m/uL (4.30-5.90); RDW 14.2 % (11.5-15.5); WBC 10.2 k/uL (3.8-10.6); WBC (Perox) 9.72
--- NOTE | 2016-11-03 00:48 | ED ---
General Adult HPI - General Chief complaint: Chest Pain Stated complaint: CHEST PAIN Time Seen by Provider: 11/03/16 00:24 Source: patient, RN notes reviewed Mode of arrival: EMS Limitations: no limitations - History of Present Illness Initial comments: Patient is a pleasant 46-year-old male presenting to the emergency Department with chest discomfort. Patient has had similar symptoms previously associated with atrial fibrillation however has not previously had the chest discomfort. Patient does have palpitations. Patient does feel short of breath. Symptoms are moderate to severe at this point. Symptoms are somewhat waxing and waning. Patient was recently in the hospital with similar problems. - Related Data Home Medications Medication Instructions Recorded Confirmed Edoxaban Tosylate [Savaysa] 60 mg PO DIRECTED 11/17/15 10/24/16 [place] 150 Mg 150 mg PO DAILY 10/24/16 10/24/16 Lutein 10 mg PO DAILY 10/24/16 10/24/16 Magnesium Oxide [Mag-Ox] 250 mg PO DAILY 10/24/16 10/24/16 [place]-3 Fatty Acids/Fish Oil [Fish 1 cap PO DAILY 10/24/16 10/24/16 Oil 1,000 mg Softgel] Potassium 99 mg PO DAILY 10/24/16 10/24/16 Mallory's Wort 300 mg PO DAILY 10/24/16 10/24/16 Allergies Allergy/AdvReac Type Severity Reaction Status Date / Time No Known Allergies Allergy Verified 11/03/16 00:18 Review of Systems ROS Statement: Those systems with pertinent positive or pertinent negative responses have been documented in the HPI. ROS Other: All systems not noted in ROS Statement are negative. Constitutional: Denies: fever Eyes: Denies: eye pain ENT: Denies: ear pain Respiratory: Reports: dyspnea. Denies: cough Cardiovascular: Reports: chest pain, palpitations Endocrine: Reports: fatigue Gastrointestinal: Denies: abdominal pain Genitourinary: Denies: dysuria Musculoskeletal: Denies: back pain Skin: Denies: rash Neurological: Reports: weakness Past Medical History Past Medical History: Atrial Fibrillation, CVA/TIA, Pneumonia, Thyroid Disorder Additional Past Medical History / Comment(s): STRESS TEST A FEW YEARS AGO; "minor stroke 11/2015 - stated that no residuals like weakness but left side is now more sensitive to pain and hot and cold History of Any Multi-Drug Resistant Organisms: None Reported Past Surgical History: Appendectomy, Cardiac Ablation, Heart Catheterization Additional Past Surgical History / Comment(s): cardioversion 11/2014 Past Anesthesia/Blood Transfusion Reactions: No Reported Reaction Past Psychological History: No Psychological Hx Reported Smoking Status: Never smoker Past Alcohol Use History: None Reported Past Drug Use History: None Reported - Past Family History Father Family Medical History: Hypertension Mother Family Medical History: AFIB, Chest Pain / Angina, Coronary Artery Disease (CAD) Additional Family Medical History / Comment(s): hx of pacemaker; mom at 39 Brother(s) Family Medical History: Coronary Artery Disease (CAD), Myocardial Infarction ([place] ), Pneumonia Additional Family Medical History / Comment(s): at age 29 General Exam Limitations: no limitations General appearance: alert, in distress Head exam: Present: atraumatic Eye exam: Present: normal appearance, PERRL ENT exam: Present: normal oropharynx Neck exam: Present: normal inspection Respiratory exam: Present: normal lung sounds bilaterally Cardiovascular Exam: Present: tachycardia, other (Thready pulses) GI/Abdominal exam: Present: soft. Absent: tenderness Extremities exam: Present: normal inspection. Absent: pedal edema, calf tenderness Neurological exam: Present: alert Psychiatric exam: Present: normal affect, normal mood Skin exam: Present: pallor Course Vital Signs 11/03/16 11/03/16 11/03/16 00:19 00:49 00:53 Temperature 96.8 F L Pulse Rate 155 H 55 L Pulse Rate [ 160 H Radial] Respiratory 18 16 Rate Blood Pressure 78/40 93/66 O2 Sat by Pulse 95 99 Oximetry 11/03/16 01:36 Temperature Pulse Rate 66 Pulse Rate [ Radial] Respiratory 16 Rate Blood Pressure 83/57 O2 Sat by Pulse 96 Oximetry - Reevaluation(s) Reevaluation #1: 11/03/16 00:42 During examination patient states he does feel worse and does become drowsy. Patient transferred to room 19 and provided synchronized cardioversion. Following this patient does feel much better and is symptom-free. 11/03/16 00:46 EKG #2 shows narrow complex tachycardia at 157. KS 134. QRS 96. QT to 48. QTC 400. Right axis. Inferior and lateral ST depression. There is some ST elevation in lead aVR. EKG #3 shows sinus bradycardia at 40. First 3 AV block with a [place] of 276. QRS 88. QT 480. QTC 391. Normal axis. Lateral ST depression. Some ST depression in lead 2. 11/03/16 00:47 Cardiology was paged 11/03/16 01:29 Case was discussed with Dr. Cai from cardiology. EKG Findings - EKG Comments: EKG Findings:: Second-degree AV block, [place] 1. QRS 90. QT 384. QTC 380. Left axis. Lateral ST depression. Previous EKG reviewed dated 10/24/2016. Procedures - Procedures Initial comment: Cardioversion: Emergent situation secondary to narrow complex tachycardia with unstable patient. Patient was hypotensive and expressing chest discomfort and dyspnea. Patient sedated with 2 mg of Versed. Patient provided 50 J of sick denies cardioversion with resolution of tachycardia and symptoms. Medical Decision Making - Medical Decision Making Patient again reexamined and resting comfortably in bed without complaint. Heart rate has improved to mid 60s. Blood pressure has improved to the low 80s. Case also discussed in detail with Dr. Sage, who will admit his patient with consult for Dr. Howell for critical care. Dr. Howell has been paged. Patient was updated on results and plan. - Lab Data Result diagrams: 11/03/16 00:25 11/03/16 00:25 Lab Results 11/03/16 11/03/16 11/03/16 Range/Units 00:25 00:25 00:25 WBC 10.2 (3.8-10.6) k/uL RBC 5.29 (4.30-5.90) m/uL Hgb 14.9 (13.0-17.5) gm/dL Hct 47.0 (39.0-53.0) % MCV 88.7 (80.0-100.0) fL MCH 28.1 (25.0-35.0) pg MCHC 31.6 (31.0-37.0) g/dL RDW 14.2 (11.5-15.5) % Plt Count 248 (150-450) k/uL Neutrophils % 45 % Lymphocytes % 40 % Monocytes % 6 % Eosinophils % 4 % Basophils % 1 % Neutrophils # 4.6 (1.3-7.7) k/uL Lymphocytes # 4.1 (1.0-4.8) k/uL Monocytes # 0.6 (0-1.0) k/uL Eosinophils # 0.5 (0-0.7) k/uL Basophils # 0.1 (0-0.2) k/uL PT (9.0-12.0) sec INR (<1.1) APTT (22.0-30.0) sec Sodium 140 (137-145) mmol/L Potassium 3.6 (3.5-5.1) mmol/L Chloride 103 (98-107) mmol/L Carbon Dioxide 25 (22-30) mmol/L Anion Gap 12 mmol/L BUN 26 H (9-20) mg/dL Creatinine 1.70 H (0.66-1.25) mg/dL Est GFR (MDRD) Af Amer 53 (>60 ml/min/1.73 sqM) Est GFR (MDRD) Non-Af 44 (>60 ml/min/1.73 sqM) Glucose 161 H (74-99) mg/dL Calcium 9.4 (8.4-10.2) mg/dL Magnesium 2.2 (1.6-2.3) mg/dL Total Bilirubin 0.5 (0.2-1.3) mg/dL AST 45 (17-59) U/L ALT 49 (21-72) U/L Alkaline Phosphatase 61 (38-126) U/L Total Creatine Kinase 54 L (55-170) U/L CK-MB (CK-2) 3.0 H* (0.0-2.4) ng/mL CK-MB (CK-2) Rel Index 5.6 Troponin I <0.012 (0.000-0.034) ng/mL Total Protein 6.7 (6.3-8.2) g/dL Albumin 3.9 (3.5-5.0) g/dL TSH 16.100 H (0.465-4.680) mIU/L Free T4 1.16 (0.78-2.19) ng/dL Free T3 pg/mL 5.7 H (2.8-5.3) pg/ml 11/03/16 Range/Units 00:25 WBC (3.8-10.6) k/uL RBC (4.30-5.90) m/uL Hgb (13.0-17.5) gm/dL Hct (39.0-53.0) % MCV (80.0-100.0) fL MCH (25.0-35.0) pg MCHC (31.0-37.0) g/dL RDW (11.5-15.5) % Plt Count (150-450) k/uL Neutrophils % % Lymphocytes % % Monocytes % % Eosinophils % % Basophils % % Neutrophils # (1.3-7.7) k/uL Lymphocytes # (1.0-4.8) k/uL Monocytes # (0-1.0) k/uL Eosinophils # (0-0.7) k/uL Basophils # (0-0.2) k/uL PT 11.1 (9.0-12.0) sec INR 1.1 (<1.1) APTT 24.0 (22.0-30.0) sec Sodium (137-145) mmol/L Potassium (3.5-5.1) mmol/L Chloride (98-107) mmol/L Carbon Dioxide (22-30) mmol/L Anion Gap mmol/L BUN (9-20) mg/dL Creatinine (0.66-1.25) mg/dL Est GFR (MDRD) Af Amer (>60 ml/min/1.73 sqM) Est GFR (MDRD) Non-Af (>60 ml/min/1.73 sqM) Glucose (74-99) mg/dL Calcium (8.4-10.2) mg/dL Magnesium (1.6-2.3) mg/dL Total Bilirubin (0.2-1.3) mg/dL AST (17-59) U/L ALT (21-72) U/L Alkaline Phosphatase (38-126) U/L Total Creatine Kinase (55-170) U/L CK-MB (CK-2) (0.0-2.4) ng/mL CK-MB (CK-2) Rel Index Troponin I (0.000-0.034) ng/mL Total Protein (6.3-8.2) g/dL Albumin (3.5-5.0) g/dL TSH (0.465-4.680) mIU/L Free T4 (0.78-2.19) ng/dL Free T3 pg/mL (2.8-5.3) pg/ml - Radiology Data Radiology results: image reviewed (Chest x-ray shows some cardiomegaly. No acute lung findings.) Critical Care Time Critical Care Time: Yes Total Critical Care Time: 36 Disposition Clinical Impression: Atrial fibrillation, Hypotension Disposition: ADMITTED IP TO THIS HOSP Condition: Serious Time of Disposition: 02:31
[2016-11-03 00:59] LABS: INR 1.1 (<1.1); Prothrombin Time 11.1 sec (9.0-12.0)
[2016-11-03] MEDS ORDERED: HEPARIN SODIUM,PORCINE 5,000 UNIT/ML 1 ML VIAL IV PRN (01:02)
[2016-11-03] MEDS ORDERED: HEPARIN SODIUM,PORCINE 5,000 UNIT/ML 1 ML VIAL IV ONE (01:02)
[2016-11-03] MEDS ORDERED: HEPARIN SODIUM,PORCINE/D5W PMX 25,000 UNIT in DEXTROSE/WATER 1 500ML.BAG IV SCH (01:15)
[2016-11-03 01:17] LABS: Creatine Kinase 54 U/L (55-170)
[2016-11-03 01:25] LABS: Calcium 9.4 mg/dL (8.4-10.2); Magnesium 2.2 mg/dL (1.6-2.3); Potassium 3.6 mmol/L (3.5-5.1); Total Bilirubin 0.5 mg/dL (0.2-1.3); Total Protein 6.7 g/dL (6.3-8.2)
[2016-11-03] MEDS ORDERED: SODIUM CHLORIDE 0.9% 500 ML IV STA (01:25)
[2016-11-03 01:31] LABS: Troponin I <0.012 ng/mL (0.000-0.034)
--- NOTE | 2016-11-03 01:44 | XR ---
EXAM: XR Chest, 1 View CLINICAL HISTORY: Reason: pain TECHNIQUE: Frontal view of the chest. COMPARISON: CXR 10/26/16 FINDINGS: Lungs: Unremarkable. No consolidation. Pleural space: Unremarkable. No pneumothorax. Heart: Cardiomegaly, unchanged. Mediastinum: Unremarkable. Bones/joints: Multilevel degenerative changes of the spine. Unremarkable. IMPRESSION: Cardiomegaly, unchanged. No acute lung findings.
[2016-11-03] MEDS ORDERED: NITROGLYCERIN SL TABS 0.4 MG TAB SUBLINGUAL PRN (02:31)
[2016-11-03 08:11] LABS: Troponin I 0.072 ng/mL (0.000-0.034)
[2016-11-03 08:12] LABS: Creatine Kinase MB 4.9 ng/mL (0.0-2.4)
[2016-11-03 10:20] LABS: Amorphous Sediment,Urine Rare /hpf; Appearance,Urine Clear (Clear); Bilirubin,Urine Negative (Negative); Glucose,Urine (UA) Negative (Negative); Granular Casts,Urine 4 /lpf (0); Ketones,Urine Negative (Negative); Leukocyte Esterase,Urine Negative (Negative); Mucus,Urine Occasional /hpf; Nitrite,Urine Negative (Negative); PH, Urine 5.5 (5.0-8.0); Particle Count 4100; Protein,Urine 1+ (Negative); RBC,Urine <1 /hpf (0-5); Specific Gravity,Urine 1.021 (1.001-1.035); Squamous Epithelial Cell,Urine 1 /hpf (0-4); UA Billing (MACRO vs. MICRO) MICRO; Urobilinogen,Urine <2.0 mg/dL (<2.0); WBC,Urine 5 /hpf (0-5)
--- NOTE | 2016-11-03 11:31 | P.CNPUL ---
History of Present Illness Consult date: 11/03/16 Requesting physician: Yony Sage Reason for consult: other (critical care) History of present illness: This is a 46-year-old male patient being evaluated and examined in the emergency room today. Patient is currently in ICU hold and is waiting for bed. This patient came into the emergency room with chest discomfort and shortness of breath and he has had previous symptoms in the past associated with atrial fibrillation however it did not result in such chest discomfort in the past. Patient states he continues to have heart palpitations. Upon examination in the emergency room the patient was cardioverted for narrow complex tachycardia with hypotension, chest pain and shortness of breath. He was given Versed. After his cardioversion he became bradycardic. Cardiology was paged and was made aware of all events. Patient then stabilized his breathing and heart rate to the low 80s. Patient has been slightly hypotension systolically 80s to 90s over the last few hours. Apparently this patient has been noncompliant with his medications in the past and is well-known to cardiology services. Apparently the patient was supposed to undergo a cardiac ablation and was a no show for the procedure. Upon examination the patient is resting up in bed and continues to be short of breath he is on 3 L of oxygen denies any cough or sputum production. He states that he can feel palpitations, come and go. Patient does not use oxygen at home. Case was discussed with cardiology. Review of Systems 14 point review of systems was completed and is negative other than what is noted above. Past Medical History Past Medical History: Atrial Fibrillation, CVA/TIA, Hyperlipidemia, Pneumonia, Syncope, Thyroid Disorder Additional Past Medical History / Comment(s): Pt recently admitted to [facility] on with Atach/SVT, dizziness and SOB/syncopy. Other hx:Mini stroke 11/2015 - stated that no residuals like weakness but left side is now more sensitive to pain and hot and cold, high cholesterol in past, cardiomyopathy, mitral valve regurg, paroxysmal Afib and has had RVR, bronchitis. History of Any Multi-Drug Resistant Organisms: None Reported Past Surgical History: Appendectomy, Cardiac Ablation, Heart Catheterization Additional Past Surgical History / Comment(s): cardiac ablations, normal cardiac cath, cardioversion 11/2014, bronchoscopy with BALs, circumcism. Past Anesthesia/Blood Transfusion Reactions: No Reported Reaction Past Psychological History: Anxiety Additional Psychological History / Comment(s): Pt resides alone. He is independent. Smoking Status: Never smoker Past Alcohol Use History: None Reported Past Drug Use History: None Reported - Past Family History Father Family Medical History: Hypertension Additional Family Medical History / Comment(s): Father is 66 yrs old. Mother Family Medical History: AFIB, Chest Pain / Angina, Coronary Artery Disease (CAD) Additional Family Medical History / Comment(s): hx of pacemaker; mom at 39 d/t "heart problem." Brother(s) Family Medical History: Coronary Artery Disease (CAD), Myocardial Infarction ([place] ), Pneumonia Additional Family Medical History / Comment(s): at age 29 from heart "muscle problem." Medications and Allergies Home Medications Medication Instructions Recorded Confirmed Type Edoxaban Tosylate [Savaysa] 60 mg PO DAILY 11/17/15 11/03/16 History [place] 150 Mg 150 mg PO DAILY 10/24/16 11/03/16 History Lutein 10 mg PO DAILY 10/24/16 11/03/16 History Magnesium Oxide [Mag-Ox] 250 mg PO DAILY 10/24/16 11/03/16 History [place]-3 Fatty Acids/Fish Oil [Fish 1 cap PO DAILY 10/24/16 11/03/16 History Oil 1,000 mg Softgel] Potassium 99 mg PO DAILY 10/24/16 11/03/16 History Mallory's Wort 300 mg PO DAILY 10/24/16 11/03/16 History Metoprolol Tartrate [Lopressor] 50 mg PO BID 11/03/16 11/03/16 History Allergies Allergy/AdvReac Type Severity Reaction Status Date / Time No Known Allergies Allergy Verified 11/03/16 07:33 Physical Exam Vitals: Vital Signs Pulse Resp BP Pulse Ox 11/03/16 10:39 88 18 94/61 100 11/03/16 09:59 56 L 16 95/65 100 11/03/16 09:10 58 L 95/63 100 11/03/16 08:10 57 L 97/64 100 11/03/16 07:00 58 L 16 86/57 100 11/03/16 06:00 61 16 83/57 100 11/03/16 05:00 59 L 16 89/56 99 11/03/16 04:00 68 16 97/55 100 11/03/16 03:00 61 16 88/56 100 GENERAL EXAM: Alert, tired, comfortable in no apparent distress. HEAD: Normocephalic. EYES: Normal reaction of pupils, equal size. NOSE: Clear with pink turbinates. THROAT: No erythema or exudates. NECK: No masses, no JVD. CHEST: No chest wall deformity. LUNGS: Equal air entry with no crackles, wheeze, rhonchi or dullness. CVS: S1 and S2 normal with no audible mumurs, irregular rhythm. ABDOMEN: No hepatosplenomegaly, normal bowel sounds, no guarding or rigidity. EXTREMITIES: No edema noted, pedal pulses palpable. SKIN: No rashes CENTRAL NERVOUS SYSTEM: No focal deficits, tone is normal in all 4 extremities. Results - Laboratory Findings CBC and BMP: 11/03/16 00:25 11/03/16 00:25 PT/INR, D-dimer PT 11.1 sec (9.0-12.0) 11/03/16 00:25 INR 1.1 (<1.1) 11/03/16 00:25 Abnormal lab findings: Abnormal Labs 11/03/16 11/03/16 11/03/16 06:53 06:53 09:56 APTT 49.6 H Total Creatine Kinase 53 L CK-MB (CK-2) 4.9 H* Troponin I 0.072 H* Urine Protein 1+ H Amorphous Sediment Rare H Hyaline Casts 13 H Urine Mucus Occasional H - Diagnostic Findings Chest x-ray: report reviewed, image reviewed Assessment and Plan Plan: Assessment Acute hypoxic respiratory failure secondary to cardiac events, tachycardia/ palpitations History of Atrial fibrillation Hypotension Elevated cardiac enzymes Status post emergent cardioversion Plan Medications have been reviewed and will be continued as ordered. We will add nebulizer treatments. This case has been discussed with cardiology and further recommendations forthcoming from them. If the patient remains hemodynamically stable we agree with downgrading the patient to selective care unit pending cardiology's recommendation. Continue with supplemental oxygen to keep oxygen saturations above 90%. Patient continues on heparin drip at this time. Protonix was ordered for GI prophylaxis. SCDs for DVT prophylaxis. We will continue to monitor labs/results and adjust treatment as necessary. I performed an examination of the patient and discussed their management with the nurse practitioner. I have reviewed the nurse practitioner's note and agree with the documented findings and plan of care.
[2016-11-03 12:20] LABS: Magnesium 1.9 mg/dL (1.6-2.3); Phosphorous 2.9 mg/dL (2.5-4.5)
[2016-11-03 12:34] LABS: Creatine Kinase MB 4.6 ng/mL (0.0-2.4); Troponin I 0.088 ng/mL (0.000-0.034)
[2016-11-03] MEDS: PANTOPRAZOLE 40 MG/10 ML VIAL IV SCH (12:47)
[2016-11-03] MEDS: SODIUM CHLORIDE 0.9% 1,000 ML IV SCH (13:49)
[2016-11-03] MEDS: IPRATROPIUM 0.5 MG/2.5 ML NEBU INHALATION SCH ×2 (14:50→20:53)
[2016-11-03] MEDS: LEVALBUTEROL NEB 1.25 MG/3 ML AMP INHALATION SCH ×2 (14:51→20:53)
--- NOTE | 2016-11-03 21:43 | P.HPIM ---
History of Present Illness H&P Date: 11/03/16 Chief Complaint: Palpitations and shortness of breath. This is a history of physical on a 46-year-old white male who is new to my practice as of today. He is seeing me secondary to insurance changes and his need to change provider because of this. He states last week he went to the emergency room for similar symptomatology and is found to have recurrent atrial fibrillation with rapid ventricular response. He states he's been has this diagnosis for many many months and even stated that he was considered and ablation type patient. But because of the time needed to actually entertain his repair, they have been seeing if they can control this from a medical perspective. He states as of last week, he was doing fine but yesterday had significant palpitations and tachycardia with shortness of breath. Enzymes are positive in the emergency room and he is admitted for ICU overflow. The patient is sitting and seemingly stable and does not have any type of chest pressure at this time. Review of Systems Constitutional: Denies chills, Denies fever Eyes: denies blurred vision, denies pain Ears, nose, mouth and throat: Denies headache, Denies sore throat Cardiovascular: Reports chest pain, Reports rapid heart beat, Reports shortness of breath Respiratory: Denies cough Gastrointestinal: Denies abdominal pain, Denies diarrhea, Denies nausea, Denies vomiting Musculoskeletal: Denies myalgias Integumentary: Denies pruritus, Denies rash Neurological: Denies numbness, Denies weakness Psychiatric: Denies anxiety, Denies depression Endocrine: Denies fatigue, Denies weight change Past Medical History Past Medical History: Atrial Fibrillation, CVA/TIA, Hyperlipidemia, Pneumonia, Syncope, Thyroid Disorder Additional Past Medical History / Comment(s): Pt recently admitted to [facility] on with Atach/SVT, dizziness and SOB/syncopy. Other hx:Mini stroke 11/2015 - stated that no residuals like weakness but left side is now more sensitive to pain and hot and cold, high cholesterol in past, cardiomyopathy, mitral valve regurg, paroxysmal Afib and has had RVR, bronchitis. History of Any Multi-Drug Resistant Organisms: None Reported Past Surgical History: Appendectomy, Cardiac Ablation, Heart Catheterization Additional Past Surgical History / Comment(s): cardiac ablations, normal cardiac cath, cardioversion 11/2014, bronchoscopy with BALs, circumcism. Past Anesthesia/Blood Transfusion Reactions: No Reported Reaction Past Psychological History: Anxiety Additional Psychological History / Comment(s): Pt resides alone. He is independent. Smoking Status: Never smoker Past Alcohol Use History: None Reported Past Drug Use History: None Reported - Past Family History Father Family Medical History: Hypertension Additional Family Medical History / Comment(s): Father is 66 yrs old. Mother Family Medical History: AFIB, Chest Pain / Angina, Coronary Artery Disease (CAD) Additional Family Medical History / Comment(s): hx of pacemaker; mom at 39 d/t "heart problem." Brother(s) Family Medical History: Coronary Artery Disease (CAD), Myocardial Infarction ([place] ), Pneumonia Additional Family Medical History / Comment(s): at age 29 from heart "muscle problem." Medications and Allergies Home Medications Medication Instructions Recorded Confirmed Type Edoxaban Tosylate [Savaysa] 60 mg PO DAILY 11/17/15 11/03/16 History [place] 150 Mg 150 mg PO DAILY 10/24/16 11/03/16 History Lutein 10 mg PO DAILY 10/24/16 11/03/16 History Magnesium Oxide [Mag-Ox] 250 mg PO DAILY 10/24/16 11/03/16 History [employer] Fatty Acids/Fish Oil [Fish 1 cap PO DAILY 10/24/16 11/03/16 History Oil 1,000 mg Softgel] Potassium 99 mg PO DAILY 10/24/16 11/03/16 History Mallory's Wort 300 mg PO DAILY 10/24/16 11/03/16 History Metoprolol Tartrate [Lopressor] 50 mg PO BID 11/03/16 11/03/16 History Allergies Allergy/AdvReac Type Severity Reaction Status Date / Time No Known Allergies Allergy Verified 11/03/16 07:33 Physical Exam Vitals: Vital Signs Temp Pulse Pulse Resp BP BP Pulse Ox 11/03/16 17:50 90 11/03/16 17:02 98.0 F 60 16 97/65 100 11/03/16 16:00 97 F L 69 16 113/78 100 11/03/16 15:30 98.4 F 90 17 100/65 100 11/03/16 12:51 98.5 F 11/03/16 12:40 112 H 97/57 100 11/03/16 11:40 108 H 93/58 100 11/03/16 10:39 88 18 94/61 100 11/03/16 09:59 56 L 16 95/65 100 11/03/16 09:10 58 L 95/63 100 11/03/16 08:10 57 L 97/64 100 11/03/16 07:00 58 L 16 86/57 100 11/03/16 06:00 61 16 83/57 100 11/03/16 05:00 59 L 16 89/56 99 11/03/16 04:00 68 16 97/55 100 11/03/16 03:00 61 16 88/56 100 Intake and Output 11/03/16 11/03/16 11/03/16 06:59 14:59 22:59 Intake Total 1040 Output Total 500 Balance -500 1040 Intake: Intake, IV Titration 800 Amount Sodium Chloride 0.9% 1, 800 000 ml @ 100 mls/hr IV . Q10H [facility]UY Rx#:[id number] Oral 240 Output: Urine 500 - Constitutional General appearance: no acute distress - EENT Eyes: EOMI - Neck Neck: no lymphadenopathy - Respiratory Respiratory: bilateral: CTA - Cardiovascular Rhythm: irregularly irregular Heart sounds: normal: S1, S2 - Gastrointestinal General gastrointestinal: no organomegaly, soft, no tenderness - Neurologic Neurologic: CNII-XII intact - Psychiatric Psychiatric: A&O x's 3, appropriate affect Results CBC & Chem 7: 11/03/16 00:25 11/03/16 00:25 Labs: Abnormal Lab Results - Last 24 Hours (Table) 11/03/16 11/03/16 11/03/16 Range/Units 06:53 06:53 09:56 APTT 49.6 H (22.0-30.0) sec Total Creatine Kinase 53 L (55-170) U/L CK-MB (CK-2) 4.9 H* (0.0-2.4) ng/mL Troponin I 0.072 H* (0.000-0.034) ng/mL Urine Protein 1+ H (Negative) Amorphous Sediment Rare H (None) /hpf Hyaline Casts 13 H (0-2) /lpf Urine Mucus Occasional H (None) /hpf 11/03/16 11/03/16 Range/Units 11:34 19:00 APTT (22.0-30.0) sec Total Creatine Kinase 51 L (55-170) U/L CK-MB (CK-2) 4.6 H* (0.0-2.4) ng/mL Troponin I 0.088 H* 0.090 H* (0.000-0.034) ng/mL Urine Protein (Negative) Amorphous Sediment (None) /hpf Hyaline Casts (0-2) /lpf Urine Mucus (None) /hpf Microbiology - Last 24 Hours (Table) 11/03/16 09:56 Urine Culture - Preliminary Urine,Voided Thrombosis Risk Factor Assmnt - Choose All That Apply Any of the Below Risk Factors Present?: Yes Each Factor Represents 1 point: Age 41-60 years, Obesity (BMI >25) Other Risk Factors: No Other congenital or acquired thrombophilia - If yes, enter type in comment: No Thrombosis Risk Factor Assessment Total Risk Factor Score: 2 Thrombosis Risk Factor Assessment Level: Low Risk Assessment and Plan (1) Atrial fibrillation with RVR Status: Acute (2) Elevated CK-MB level Status: Acute (3) Hyperlipemia Status: Acute (4) Rapid palpitations Status: Acute Plan: Medication titration will be initiated. Consult cardiology and pulmonology/coal getter. Check CBC and CMP with magnesium level in a.m. We'll try to obtain old records. I question if the patient does need repeat echocardiogram and thyroid studies. Reconcile medications. The patient is otherwise full code. Question need to schedule the patient for possible ablation. Dr. Anders's group will be covering for the weekend. Time with Patient: Greater than 30
[2016-11-03] MEDS: METOPROLOL TARTRATE 50 MG TAB PO SCH (22:40)
[2016-11-03] MEDS: EDOXABAN TOSYLATE 60 MG TABLET PO SCH (22:41)
[2016-11-04] MEDS: SODIUM CHLORIDE 0.9% 1,000 ML IV SCH ×3 (06:03→16:02)
[2016-11-04 07:33] LABS: ALT 40 U/L (21-72); AST 28 U/L (17-59); Alkaline Phosphatase 43 U/L (38-126); Anion Gap 7 mmol/L; Blood Urea Nitrogen 18 mg/dL (9-20); Calcium 9.4 mg/dL (8.4-10.2); Carbon Dioxide 25 mmol/L (22-30); Chloride 110 mmol/L (98-107); Cholesterol 146 mg/dL (<200); Glucose 98 mg/dL (74-99); HDL Cholesterol 30 mg/dL (40-60); Magnesium 2.2 mg/dL (1.6-2.3); Non-African American GFR(MDRD) >60 (>60 ml/min/1.73 sqM); Phosphorous 2.7 mg/dL (2.5-4.5); Potassium 4.6 mmol/L (3.5-5.1); Sodium 142 mmol/L (137-145); Total Bilirubin 0.5 mg/dL (0.2-1.3); Total Protein 5.9 g/dL (6.3-8.2); Triglycerides 92 mg/dL (<150)
[2016-11-04] MEDS: IPRATROPIUM 0.5 MG/2.5 ML NEBU INHALATION SCH ×4 (08:19→19:30)
[2016-11-04] MEDS: LEVALBUTEROL NEB 1.25 MG/3 ML AMP INHALATION SCH ×4 (08:29→19:30)
[2016-11-04] MEDS: PANTOPRAZOLE 40 MG/10 ML VIAL IV SCH (08:33)
[2016-11-04] MEDS: METOPROLOL TARTRATE 50 MG TAB PO SCH ×2 (08:33→19:31)
[2016-11-04] MEDS: EDOXABAN TOSYLATE 60 MG TABLET PO SCH (08:33)
[2016-11-04] MEDS: ASPIRIN 325 MG TAB PO SCH (08:33)
--- NOTE | 2016-11-04 11:14 | P.CRDCN ---
History of Present Illness Consult date: 11/04/16 History of present illness: This is a 46-year-old gentleman with history of hypertrophic cardiomyopathy and recurrent SVT suggestive of atrial tachycardia. Patient was seen by Dr. Powell on October 24, and recommended that patient have ablation. Patient has history of isolation of the right-sided veins only with atrial tachycardia ablation. Apparently there is history of TIA. Patient had normal coronary arteries in the past. He has been on several days. He came to the hospital with complaints of palpitations, shortness of breath and hypotension. Patient had a cardioversion the emergency room. Patient is feeling much better today. His EKG showed a sinus rhythm with a diffuse is ST-T changes. He would like to have an ablation done. Dr. Powell has mentioned about doing some ablation next week. His troponins are borderline elevated, most probably secondary to demand supply mismatch. I'll get an echocardiogram to assess LV function. Will discuss with fire lookout next week. Review of Systems As per the chart Past Medical History Past Medical History: Atrial Fibrillation, CVA/TIA, Hyperlipidemia, Pneumonia, Syncope, Thyroid Disorder Additional Past Medical History / Comment(s): Pt recently admitted to [facility] on with Atach/SVT, dizziness and SOB/syncopy. Other hx:Mini stroke 11/2015 - stated that no residuals like weakness but left side is now more sensitive to pain and hot and cold, high cholesterol in past, cardiomyopathy, mitral valve regurg, paroxysmal Afib and has had RVR, bronchitis. History of Any Multi-Drug Resistant Organisms: None Reported Past Surgical History: Appendectomy, Cardiac Ablation, Heart Catheterization Additional Past Surgical History / Comment(s): cardiac ablations, normal cardiac cath, cardioversion 11/2014, bronchoscopy with BALs, circumcism. Past Anesthesia/Blood Transfusion Reactions: No Reported Reaction Past Psychological History: Anxiety Additional Psychological History / Comment(s): Pt resides alone. He is independent. Smoking Status: Never smoker Past Alcohol Use History: None Reported Past Drug Use History: None Reported - Past Family History Father Family Medical History: Hypertension Additional Family Medical History / Comment(s): Father is 66 yrs old. Mother Family Medical History: AFIB, Chest Pain / Angina, Coronary Artery Disease (CAD) Additional Family Medical History / Comment(s): hx of pacemaker; mom at 39 d/t "heart problem." Brother(s) Family Medical History: Coronary Artery Disease (CAD), Myocardial Infarction ([place] ), Pneumonia Additional Family Medical History / Comment(s): at age 29 from heart "muscle problem." Medications and Allergies Home Medications Medication Instructions Recorded Confirmed Type Edoxaban Tosylate [Savaysa] 60 mg PO DAILY 11/17/15 11/03/16 History [place] 150 Mg 150 mg PO DAILY 10/24/16 11/03/16 History Lutein 10 mg PO DAILY 10/24/16 11/03/16 History Magnesium Oxide [Mag-Ox] 250 mg PO DAILY 10/24/16 11/03/16 History [place]-3 Fatty Acids/Fish Oil [Fish 1 cap PO DAILY 10/24/16 11/03/16 History Oil 1,000 mg Softgel] Potassium 99 mg PO DAILY 10/24/16 11/03/16 History [place]'s Wort 300 mg PO DAILY 10/24/16 11/03/16 History Metoprolol Tartrate [Lopressor] 50 mg PO BID 11/03/16 11/03/16 History Allergies Allergy/AdvReac Type Severity Reaction Status Date / Time No Known Allergies Allergy Verified 11/03/16 07:33 Physical Exam Vitals: Vital Signs Temp Pulse Pulse Resp BP BP Pulse Ox 11/04/16 08:00 65 18 102/64 100 11/04/16 04:00 97.4 F L 59 L 18 114/62 97 11/03/16 23:26 97.2 F L 68 17 100/66 97 11/03/16 20:00 97.7 F 61 18 94/58 97 11/03/16 17:50 90 11/03/16 17:02 98.0 F 60 16 97/65 100 11/03/16 16:00 97 F L 69 16 113/78 100 11/03/16 15:30 98.4 F 90 17 100/65 100 11/03/16 12:51 98.5 F 11/03/16 12:40 112 H 97/57 100 11/03/16 11:40 108 H 93/58 100 Intake and Output 11/03/16 11/04/16 11/04/16 22:59 06:59 14:59 Intake Total 1040 900 118 Balance 1040 900 118 Intake: IV 900 Sodium Chloride 0.9% 1, 900 000 ml @ 100 mls/hr IV . Q10H [facility] Rx#:[id number] Intake, IV Titration 800 Amount Sodium Chloride 0.9% 1, 800 000 ml @ 100 mls/hr IV . Q10H [facility] Rx#:[id number] Oral 240 118 Other: Voiding Method Urinal Urinal # Voids 1 Weight 77.1 kg GENERAL EXAM: Patient is alert and oriented and doesn't appear to be in any acute distress HEENT: Normocephalic. Normal reaction of pupils, equal size, normal range of extraocular motion. No erythema or exudates in the throat. NECK: No masses, no nuchal rigidity. CHEST: No chest wall deformity. LUNGS: Equal air entry with no crackles or wheeze. HEART: S1 and S2 normal with no audible mumurs or gallops. Regular rhythm, femorals equal on both sides.. ABDOMEN: No hepatosplenomegaly, normal bowel sounds, no guarding or rigidity. SKIN: No rashes CENTRAL NERVOUS SYSTEM: No focal deficits. EXTREMITIES: No cyanosis, clubbing or edema. Results 11/03/16 00:25 11/04/16 06:08 Cardiac Enzymes 11/03/16 11/03/16 11/04/16 Range/Units 11:34 19:00 06:08 AST 28 (17-59) U/L CK-MB (CK-2) 4.6 H* (0.0-2.4) ng/mL Troponin I 0.088 H* 0.090 H* (0.000-0.034) ng/mL Coagulation 11/04/16 Range/Units 06:08 APTT 27.3 (22.0-30.0) sec Lipids 11/04/16 Range/Units 06:08 Triglycerides 92 (<150) mg/dL Cholesterol 146 (<200) mg/dL HDL Cholesterol 30 L (40-60) mg/dL Comprehensive Metabolic Panel 11/04/16 Range/Units 06:08 Sodium 142 (137-145) mmol/L Potassium 4.6 (3.5-5.1) mmol/L Chloride 110 H (98-107) mmol/L Carbon Dioxide 25 (22-30) mmol/L BUN 18 (9-20) mg/dL Creatinine 1.09 (0.66-1.25) mg/dL Glucose 98 (74-99) mg/dL Calcium 9.4 (8.4-10.2) mg/dL AST 28 (17-59) U/L ALT 40 (21-72) U/L Alkaline Phosphatase 43 (38-126) U/L Total Protein 5.9 L (6.3-8.2) g/dL Albumin 3.2 L (3.5-5.0) g/dL Current Medications Generic Name Dose Route Start Last Admin Trade Name Freq PRN Reason Stop Dose Admin Aspirin 325 mg 11/04/16 09:00 11/04/16 08:33 Aspirin PO 325 mg DAILY MAR[facility]UY Administration Edoxaban 60 mg 11/03/16 21:30 11/04/16 08:33 Savaysa PO 60 mg DAILY [facility]Y Administration Sodium Chloride 1,000 mls @ 100 mls/hr 11/03/16 02:45 11/04/16 10:25 Saline 0.9% IV Not Given .Q10H MARICHUY Ipratropium [place] 0.5 mg 11/03/16 12:00 11/04/16 08:19 Atrovent Nebulized INHALATION Not Given RT-QID MAR[facility]UY Levalbuterol HCl 1.25 mg 11/03/16 12:00 11/04/16 08:29 Xopenex Nebulized INHALATION Not Given RT-QID [facility]Y Metoprolol Tartrate 50 mg 11/03/16 21:30 11/04/16 08:33 Lopressor PO 50 mg BID MAR[facility]UY Administration Nitroglycerin 0.4 mg 11/03/16 02:31 Nitrostat SUBLINGUAL Q5M PRN Chest Pain Pantoprazole Sodium 40 mg 11/03/16 11:15 11/04/16 08:33 Protonix IV 40 mg DAILY MAR[facility]UY Administration Intake and Output 11/03/16 11/04/16 11/04/16 22:59 06:59 14:59 Intake Total 1040 900 118 Balance 1040 900 118 Intake: IV 900 Sodium Chloride 0.9% 1, 900 000 ml @ 100 mls/hr IV . Q10H [facility] Rx#:[id number] Intake, IV Titration 800 Amount Sodium Chloride 0.9% 1, 800 000 ml @ 100 mls/hr IV . Q10H [facility]Y Rx#:[id number] Oral 240 118 Other: Voiding Method Urinal Urinal # Voids 1 Weight 77.1 kg 11/04/16 06:08 EKG Interpretations (text) Sinus rhythm with a diffuse ST-T changes Assessment and Plan (1) Atrial tachycardia Status: Acute (2) History of TIA (transient ischemic attack) Status: Acute (3) Hypertrophic cardiomyopathy Status: Acute Plan: Continue current medical therapy including anticoagulation. We will discuss with fire lookout for possible ablation next week.
--- NOTE | 2016-11-04 19:59 | PN ---
Mr. Roberts is seen, evaluated, examined in the step-down unit. His shortness of breath and palpitations are slightly improved, though. The patient is being monitored and observed closely. On his medications, the patient is being anticoagulated with Savaysa for chronic recurrent atrial fibrillation. His shortness of breath is there, but slightly better than yesterday. Denies any cough or sputum production. Hemodynamic status stable. 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 His last set of vitals include blood pressure is 97/65, respiratory rate 18, pulse 59, temperature 97, saturating 97% on 2L oxygen. HEENT: Otherwise unremarkable. Atraumatic, normocephalic. Pharynx is clear. Narrow pharyngeal opening is present. NECK: Supple without lymphadenopathy, jugular venous distention or carotid bruits. LUNGS: Bilateral good air entry is present without significant rales, rhonchi or rub. HEART: Regular rate and rhythm. S1 and S2 audible. ABDOMEN: Soft. No rebound or rigidity. EXTREMITIES: +1 peripheral pulses. NEUROLOGICAL: Otherwise, awake and alert. Labs reviewed. Medications reviewed. IMPRESSION: 1. Acute hypoxic respiratory failure related to atrial flutter/fibrillation, now stable and improved. 2. History of recurrent atrial fibrillation. 3. Hypertension related to acute on chronic diastolic heart failure. 4. Mildly elevated cardiac enzymes. 5. Renal failure, appears to be acute on chronic. Plan and recommendation is to continue supportive care. Continue current intervention and medication. Monitor patient off of cardioversion. Patient is now on downgraded to a step-down unit. Will follow. Patient likely will need a sleep study and repeat pulmonary function testing in outpatient setting.
[2016-11-05] MEDS: SODIUM CHLORIDE 0.9% 1,000 ML IV SCH (06:06)
[2016-11-05 06:46] LABS: ALT 32 U/L (21-72); AST 22 U/L (17-59); Alkaline Phosphatase 45 U/L (38-126); Anion Gap 10 mmol/L; Blood Urea Nitrogen 18 mg/dL (9-20); Calcium 9.1 mg/dL (8.4-10.2); Carbon Dioxide 23 mmol/L (22-30); Chloride 108 mmol/L (98-107); Glucose 90 mg/dL (74-99); Magnesium 1.8 mg/dL (1.6-2.3); Non-African American GFR(MDRD) >60 (>60 ml/min/1.73 sqM); Phosphorous 3.2 mg/dL (2.5-4.5); Potassium 4.1 mmol/L (3.5-5.1); Sodium 141 mmol/L (137-145); Total Bilirubin 0.5 mg/dL (0.2-1.3); Total Protein 6.4 g/dL (6.3-8.2)
[2016-11-05] MEDS: IPRATROPIUM 0.5 MG/2.5 ML NEBU INHALATION SCH ×4 (08:29→22:07)
[2016-11-05] MEDS: LEVALBUTEROL NEB 1.25 MG/3 ML AMP INHALATION SCH ×4 (09:10→22:07)
[2016-11-05] MEDS: PANTOPRAZOLE 40 MG/10 ML VIAL IV SCH (09:32)
[2016-11-05] MEDS: EDOXABAN TOSYLATE 60 MG TABLET PO SCH (09:33)
[2016-11-05] MEDS: ASPIRIN 325 MG TAB PO SCH (09:33)
[2016-11-05] MEDS: METOPROLOL TARTRATE 50 MG TAB PO SCH ×2 (09:33→20:03)
[2016-11-06] MEDS: PANTOPRAZOLE 40 MG TABLET PO SCH (06:28)
[2016-11-06 06:31] LABS: ALT 41 U/L (21-72); AST 25 U/L (17-59); Alkaline Phosphatase 52 U/L (38-126); Anion Gap 11 mmol/L; Blood Urea Nitrogen 17 mg/dL (9-20); Calcium 9.9 mg/dL (8.4-10.2); Carbon Dioxide 27 mmol/L (22-30); Chloride 103 mmol/L (98-107); Glucose 90 mg/dL (74-99); Magnesium 1.9 mg/dL (1.6-2.3); Non-African American GFR(MDRD) >60 (>60 ml/min/1.73 sqM); Phosphorous 3.7 mg/dL (2.5-4.5); Potassium 4.2 mmol/L (3.5-5.1); Sodium 141 mmol/L (137-145); Total Bilirubin 0.7 mg/dL (0.2-1.3); Total Protein 6.8 g/dL (6.3-8.2)
--- NOTE | 2016-11-06 06:36 | PN ---
DATE OF SERVICE: 11/05/2016 INTERVAL HISTORY: Mr. Roberts is a 46-year-old male with a known history of hypertropic cardiomyopathy, atrial fibrillation and recurrent atrial tachycardia admitted to the hospital with shortness of breath and hypotension. Patient was found to have ( ) tachycardia and underwent cardioversion in the ER. Patient is more comfortable otherwise. The patient does have troponin elevation, most likely secondary to demand mismatch. Patient was seen by Cardiology and recommend EP evaluation, which is pending at this time. Otherwise, patient denied any chest pain. No worsening short of breath. No nausea or vomiting, abdominal. Patient does have recurrent episodes of atrial tachycardia. Otherwise all other review of systems negative except as above. Current medications include aspirin, DuoNeb, Edoxaban, Lopressor and Protonix. PHYSICAL EXAMINATION: A 46-year-old male lying in bed comfortably. Awake, alert, oriented x3. Appears to be in no apparent distress. VITALS: Blood pressure is 106/71, pulse is 50, respirations 17, temperature afebrile, pulse ox 96% on room air. HEENT: Atraumatic, normocephalic. Neck is supple. No JVD. CVS EXAM: S1, S2 heard. No murmurs, no gallop, no rub. LUNGS: Bilateral air entry is present. No wheezing. No crackles. Nonlabored breathing. ABDOMEN: Soft, nontender. Bowel sounds present. MEAT CLERK: Awake, alert and oriented x3. No focal deficit. Cranial nerves grossly intact. EXTREMITIES: No edema. Pulses palpable bilaterally. No clubbing or cyanosis. PSYCHIATRIC: Cooperative. LABORATORY DATA: Sodium 141, potassium 4.1, chloride 108, bicarb is 23, BUN 18, creatinine 1.0. Albumin 3.5. IMPRESSION: 1. Recurrent atrial tachycardia. 2. History of atrial fibrillation, on anticoagulants with Savaysa. 3. History of transient ischemic attack. 4. Hypothyroidism. 5. Hypertropic cardiomyopathy. 6. Elevated troponin, most likely secondary to demand mismatch. DISCUSSION AND PLAN: Will continue telemonitoring. Heparin has been discontinued. We will continue the beta blockers and follow up closely. EP evaluation tomorrow. Further recommendations based on the clinical course.
[2016-11-06] MEDS: IPRATROPIUM-ALBUTEROL 3 ML NEB INHALATION SCH ×4 (07:46→20:05)
--- NOTE | 2016-11-06 08:43 | P.PN ---
Subjective Principal diagnosis: Atrial tachycardia. This is a continue progress on for 6-year-old white male with known history of reactive cardiopathy and atrial tachycardia. He is essentially awaiting possible electrophysiology treatment this week. He states no symptoms of chest pain or shortness of breath since 2 days ago. No nausea, vomiting or diarrhea is stated. He seems to be tolerating diet appropriately. Objective - Vital Signs Vital signs: Vital Signs Temp 98.3 F 11/06/16 00:00 Pulse 61 11/06/16 04:00 Resp 16 11/06/16 04:00 BP 125/78 11/06/16 04:00 Pulse Ox 99 11/06/16 04:00 Intake & Output 11/05/16 11/06/16 11/06/16 18:59 06:59 18:59 Intake Total 354 Balance 354 Weight 73.8 kg Intake: IV 0 Sodium Chloride 0.9% 1, 0 000 ml @ 100 mls/hr IV . Q10H [facility] Rx#:[id number] Oral 354 Other: Voiding Method Toilet # Voids 1 - Constitutional General appearance: Present: average body habitus - EENT Eyes: Absent: abnormal pupil - Neck Neck: Absent: lymphadenopathy - Respiratory Respiratory: bilateral: CTA - Cardiovascular Rhythm: regular Heart sounds: normal: S1, S2 - Gastrointestinal General gastrointestinal: Present: soft. Absent: tenderness - Psychiatric Psychiatric: Present: A&O x's 3, appropriate affect - Labs CBC & Chem 7: 11/03/16 00:25 11/06/16 05:44 Assessment and Plan (1) Atrial fibrillation with RVR Status: Acute (2) Elevated CK-MB level Status: Acute (3) Hyperlipemia Status: Acute (4) Rapid palpitations Status: Acute Plan: Continue current regimen of treatment. Await possible ablation treatment. We'll continue to follow closely. DC once cleared by cardiology. Time with Patient: Less than 30
[2016-11-06] MEDS: ASPIRIN 325 MG TAB PO SCH (08:45)
[2016-11-06] MEDS: METOPROLOL TARTRATE 50 MG TAB PO SCH ×2 (08:46→19:59)
[2016-11-06] MEDS: EDOXABAN TOSYLATE 60 MG TABLET PO SCH (08:46)
--- NOTE | 2016-11-06 10:54 | PN ---
Mr. Roberts is a 46-year-old gentleman with history of hypertrophic cardiomyopathy and recurrent SVT. Patient was admitted to the hospital with SVT and hypotension. Patient required a cardioversion. Since cardioversion, patient has been doing well. Dr. Powell has seen him in the past and advised him that he should be on anticoagulation therapy for at least 4 weeks prior to ablation. Patient has been on Savaysa only about 1 to 2 weeks' time. He is clinically stable. He could be discharged home. Follow up with Dr. Powell, ablation to be arranged as an outpatient. Physical examination reveals a 46-year-old gentleman who is alert, oriented, does not appear to be in any acute distress. Lungs are clear. Heart regular rate and rhythm with no JVD, no peripheral edema. His blood pressure is about 120/80, pulse is 57, respirations are 18. Neck is supple. No JVD. HEART: S1 and S2 heard. Lungs appear to be clear. EXTREMITIES: No cyanosis, clubbing, or edema. His lab work today showed normal electrolytes. He is being discharged to home on: 1. Aspirin. 2. Savaysa. 3. Metoprolol 50 mg p.o. b.i.d. 4. Nitrostat. 5. Pantoprazole.
--- NOTE | 2016-11-06 12:20 | P.PN ---
Subjective This is a 46-year-old male patient being evaluated and examined in the emergency room today. Patient is currently in ICU hold and is waiting for bed. This patient came into the emergency room with chest discomfort and shortness of breath and he has had previous symptoms in the past associated with atrial fibrillation however it did not result in such chest discomfort in the past. Patient states he continues to have heart palpitations. Upon examination in the emergency room the patient was cardioverted for narrow complex tachycardia with hypotension, chest pain and shortness of breath. He was given Versed. After his cardioversion he became bradycardic. Cardiology was paged and was made aware of all events. Patient then stabilized his breathing and heart rate to the low 80s. Patient has been slightly hypotension systolically 80s to 90s over the last few hours. Apparently this patient has been noncompliant with his medications in the past and is well-known to cardiology services. Apparently the patient was supposed to undergo a cardiac ablation and was a no show for the procedure. Upon examination the patient is resting up in bed, on room air denies any cough or sputum production. He states that he can feel palpitations, come and go. Patient is scheduled for a cardiac ablation tomorrow. Objective - Vital Signs Vital signs: Vital Signs Temp 97.7 F 11/06/16 08:40 Pulse 64 11/06/16 08:40 Resp 18 11/06/16 08:40 BP 101/75 11/06/16 08:40 Pulse Ox 99 11/06/16 08:40 Intake & Output 11/05/16 11/06/16 11/06/16 18:59 06:59 18:59 Intake Total 354 120 Balance 354 120 Weight 73.8 kg Intake: IV 0 Sodium Chloride 0.9% 1, 0 000 ml @ 100 mls/hr IV . Q10H [facility] Rx#:[id number] Oral 354 120 Other: Voiding Method Toilet # Voids 1 - Exam GENERAL EXAM: Alert, active, comfortable in no apparent distress. HEAD: Normocephalic. EYES: Normal reaction of pupils, equal size. NOSE: Clear with pink turbinates. THROAT: No erythema or exudates. NECK: No masses, no JVD. CHEST: No chest wall deformity. LUNGS: Equal air entry with no crackles, wheeze, rhonchi or dullness. CVS: S1 and S2 normal with no audible mumurs, irregular rhythm. ABDOMEN: No hepatosplenomegaly, normal bowel sounds, no guarding or rigidity. EXTREMITIES: No edema noted, pedal pulses palpable. SKIN: No rashes CENTRAL NERVOUS SYSTEM: No focal deficits, tone is normal in all 4 extremities. - Labs CBC & Chem 7: 11/03/16 00:25 11/06/16 05:44 Labs: Abnormal Lab Results - Last 24 Hours (Table) 11/06/16 Range/Units 05:44 TSH 5.890 H (0.465-4.680) mIU/L Assessment and Plan Plan: Assessment Acute hypoxic respiratory failure secondary to cardiac events, tachycardia/ palpitations History of Atrial fibrillation Hypotension Elevated cardiac enzymes Acute on chronic diastolic heart failure Status post emergent cardioversion Renal failure, appears to be acute on chronic Plan Medications have been reviewed and will be continued as ordered. Continue nebulizer treatments. This case has been discussed with cardiology and patient is scheduled for cardiac ablation tomorrow. Patient will require an outpatient sleep study and pulmonary function tests. Continue with supplemental oxygen to keep oxygen saturations above 90%. GI and DVT prophylaxis. We will continue to follow clinical course closely. We will continue to monitor labs/results and adjust treatment as necessary. I performed an examination of the patient and discussed their management with the nurse practitioner. I have reviewed the nurse practitioner's note and agree with the documented findings and plan of care.
--- NOTE | 2016-11-06 12:44 | P.PN ---
Subjective Principal diagnosis: SVT This is a 46-year-old gentleman with history of hypertrophic cardiomyopathy and recurrent SVT suggestive of atrial tachycardia. Patient was seen by Dr. Powell on October 24, and recommended that patient have ablation. Patient has history of isolation of the right-sided veins only with atrial tachycardia ablation. Apparently there is history of TIA. Patient had normal coronary arteries in the past. He came to the hospital with complaints of palpitations, shortness of breath and hypotension. Was found to be in SVT, patient had a cardioversion the emergency room. Patient is feeling much better today. His EKG shows a sinus rhythm with diffuse is ST-T changes. Blood pressure 124/78 with a heart rate in the 60s today. Patient was seen today by Dr. Powell, he will be scheduled to undergo EP study and ablation tomorrow. Objective - Vital Signs Vital signs: Vital Signs Temp 97.7 F 11/06/16 08:40 Pulse 64 11/06/16 08:40 Resp 18 11/06/16 08:40 BP 101/75 11/06/16 08:40 Pulse Ox 99 11/06/16 08:40 Intake & Output 11/05/16 11/06/16 11/06/16 18:59 06:59 18:59 Intake Total 354 120 Balance 354 120 Weight 73.8 kg Intake: IV 0 Sodium Chloride 0.9% 1, 0 000 ml @ 100 mls/hr IV . Q10H [facility] Rx#:[id number] Oral 354 120 Other: Voiding Method Toilet # Voids 1 - Exam PHYSICAL EXAMINATION: HEENT: Head is atraumatic, normocephalic. Pupils equal, round. Neck is supple. There is no elevated jugular venous pressure. HEART EXAMINATION: Heart S1, S2 normal. No murmur or gallop heard. CHEST EXAMINATION: Lungs are clear to auscultation and precussion. No chest wall tenderness is noted on palpation or with deep breathing. ABDOMEN: Soft, nontender. Bowel sounds are heard. No organomegaly noted. EXTREMITIES: 2+ peripheral pulses with no evidence of peripheral edema and no calf tenderness noted. NEUROLOGIC patient is awake, alert and oriented -3. . - Labs CBC & Chem 7: 11/03/16 00:25 11/06/16 05:44 Labs: Abnormal Lab Results - Last 24 Hours (Table) 11/06/16 Range/Units 05:44 TSH 5.890 H (0.465-4.680) mIU/L Assessment and Plan (1) Paroxysmal a-fib Status: Acute (2) Encounter for cardioversion procedure Status: Acute (3) Atrial tachycardia Status: Acute (4) History of TIA (transient ischemic attack) Status: Acute (5) Hypertrophic cardiomyopathy Status: Acute (6) Hypotension Status: Acute (7) Hyperlipemia Status: Acute (8) Hypothyroid Status: Acute (9) Supraventricular tachycardia Status: Acute Plan: From cardiology's perspective, we will check a repeat TSH level as it has been significantly high on this most recent admission, patient will also be scheduled to undergo EP studies and ablation tomorrow with Dr. Powell. DNP note has been reviewed, I agree with a documented findings and plan of care. Patient was seen and examined.
[2016-11-06] MEDS: SODIUM CHLORIDE 0.9% 1,000 ML IV SCH (12:52)
--- NOTE | 2016-11-06 13:29 | PN ---
DATE OF SERVICE: 11/05/2016 Mr. Yannick Roberts is a 46-year-old male with history of recurrent atrial fibrillation with rapid ventricular response, history of interstitial lung disease and pulmonary fibrosis The patient has been admitted to hospital with atrial fibrillation with rapid ventricular response and acute hypoxic respiratory failure, likely related to above; however, requiring emergent cardioversion. Patient is relatively more stable in terms of breathing. He remains on breathing treatments, which he seems to be tolerating very well. His current medications are reviewed and include Protonix 40 mg daily, Nitrostat as needed, Lopressor 50 mg 2 times a day, Xopenex 1.25 four times a day, ipratropium updraft, 4 times a day, Savaysa 60 mg daily, aspirin 325 mg daily. On examination, his blood pressure is 116/72, respiratory rate 16, pulse 60, temperature 97. He remains afebrile. Sats are 97% on room air. His last chest x-ray performed 11/03/16 reviewed and compared with the prior x-ray, borderline cardiomegaly, prominent interstitium, otherwise unremarkable. IMPRESSION: 1. History of interstitial lung disease, which has improved now. However, patient has been off of ( ) as well. 2. Atrial fibrillation with rapid ventricular response, status post emergent cardioversion. 3. History of paroxysmal atrial fibrillation. 4. Elevated cardiac enzymes, likely related to cardioversion. Plan is as above. Continue supportive care. Continue to monitor oxygen and blood pressure, hemodynamic status as well as oxygenation closely. Increase activity as tolerated. The patient will likely need a follow-up PFT on outpatient basis. I agree with discharge planning and follow up in outpatient setting.
--- NOTE | 2016-11-06 16:28 | PN ---
DATE OF SERVICE: 11/04/2016 Mr. Roberts is a 46 -year-old male with known history of hypertrophic cardiomyopathy, and recurrent SVT and atrial tachycardia who has been followed by Dr. Powell as an outpatient and also had cardiac ablation. The patient admitted to the hospital to the ER with similar complaints as well. The patient has history of atrial fibrillation, CVA/TIA, hyperlipidemia and hypothyroidism. The patient also has a history of cardioversion. Currently the also found to have elevated troponin level. Currently on heparin drip and cardiology recommended evaluation by EP with Dr. Powell. Patient had cardioversion in the emergency room and patient is feeling much better today. Otherwise, the patient denied any complaints now. REVIEW OF SYSTEMS: No fever. No chills. No chest pain or short of breath. No leg swelling and no nausea or vomiting. No cough or sputum production. PSYCHIATRY: Negative. Skin: Negative. All other 14 point review of systems negative except as above. Current medications reviewed. PHYSICAL EXAMINATION: 46 -year-old male sitting on his bed comfortably, awake, alert and oriented x3, appears to be in no apparent distress. VITALS: Blood pressure is 118/73, pulse is 64, respiration 18, temperature afebrile, pulse ox 100% on room air. HEENT: Atraumatic, normocephalic. Neck is supple. No JVD. CVS: S1, S2 heard. No murmurs, no gallop, no rub. LUNGS: Bilateral air entry is present. No wheezing. No crackles. Nonlabored breathing. ABDOMEN: Soft, nontender. Bowel sounds present. CENTRAL NERVOUS SYSTEM: Awake, alert and oriented times three. No focal deficits. EXTREMITIES: No edema. Pulses palpable bilaterally. No clubbing or cyanosis. PSYCHIATRIC: Cooperative. LABORATORY DATA: Sodium 140, potassium 4.6, chloride 110, bicarb is 25. BUN 18, creatinine 1.09. LDL 98. Troponin peaked at 0.090. IMPRESSION: 1. Atrial tachycardia. 2. History of hypertrophic cardiomyopathy. 3. History of atrial fibrillation on anticoagulation. 4. History of transient ischemic attack. 5. Hypothyroidism. 6. Hyperlipidemia. DISCUSSION AND PLAN: The patient will be continued on telemonitoring. Heparin has been discontinued. Elevated troponin is most likely secondary to demand mismatch. Cardiac /EP evaluation pending. Continue the current management and further recommendations based on clinical course. MTDD
[2016-11-07 06:23] LABS: Glucose,Whole Blood 85 mg/dL (75-99)
[2016-11-07] MEDS: ASPIRIN 325 MG TAB PO SCH (06:34)
[2016-11-07] MEDS: EDOXABAN TOSYLATE 60 MG TABLET PO SCH (06:34)
[2016-11-07] MEDS: METOPROLOL TARTRATE 50 MG TAB PO SCH (06:34)
[2016-11-07] MEDS: PANTOPRAZOLE 40 MG TABLET PO SCH (06:34)
[2016-11-07 07:08] LABS: ALT 43 U/L (21-72); AST 30 U/L (17-59); Alkaline Phosphatase 51 U/L (38-126); Anion Gap 9 mmol/L; Blood Urea Nitrogen 21 mg/dL (9-20); Calcium 9.4 mg/dL (8.4-10.2); Carbon Dioxide 29 mmol/L (22-30); Chloride 103 mmol/L (98-107); Glucose 90 mg/dL (74-99); Non-African American GFR(MDRD) >60 (>60 ml/min/1.73 sqM); Phosphorous 3.9 mg/dL (2.5-4.5); Potassium 4.5 mmol/L (3.5-5.1); Sodium 141 mmol/L (137-145); Total Bilirubin 0.7 mg/dL (0.2-1.3)
[2016-11-07] MEDS: IPRATROPIUM-ALBUTEROL 3 ML NEB INHALATION SCH ×4 (08:11→19:56)
--- NOTE | 2016-11-07 08:26 | P.PN ---
Subjective Principal diagnosis: Atrial tachycardia. This is a continue progress on for 6-year-old white male with known history of reactive cardiopathy and atrial tachycardia. He is essentially awaiting possible electrophysiology treatment this week. He states no symptoms of chest pain or shortness of breath since 2 days ago. No nausea, vomiting or diarrhea is stated. He seems to be tolerating diet appropriately. Objective - Vital Signs Vital signs: Vital Signs Temp 97.6 F 11/07/16 00:00 Pulse 61 11/07/16 04:00 Resp 18 11/07/16 04:00 BP 102/60 11/07/16 04:00 Pulse Ox 100 11/07/16 04:00 Intake & Output 11/06/16 11/07/16 11/07/16 18:59 06:59 18:59 Intake Total 485 Balance 485 Weight 72.9 kg Intake: Oral 485 Other: Voiding Method Toilet Toilet # Voids 2 1 - Constitutional General appearance: Present: average body habitus - EENT Eyes: Absent: abnormal pupil - Respiratory Respiratory: bilateral: CTA - Cardiovascular Rhythm: irregularly irregular Heart sounds: normal: S1, S2 - Gastrointestinal General gastrointestinal: Present: soft. Absent: tenderness - Labs CBC & Chem 7: 11/03/16 00:25 11/07/16 06:21 Labs: Abnormal Lab Results - Last 24 Hours (Table) 11/06/16 11/07/16 Range/Units 05:44 06:21 BUN 21 H (9-20) mg/dL TSH 5.890 H (0.465-4.680) mIU/L Assessment and Plan (1) Atrial fibrillation with RVR Status: Acute (2) Elevated CK-MB level Status: Acute (3) Hyperlipemia Status: Acute (4) Rapid palpitations Status: Acute Plan: Essentially await ablation today. The patient understands the risks and benefits of this procedure and wishes to proceed. See orders otherwise.
--- NOTE | 2016-11-07 11:00 | P.PN ---
Subjective This is a 46-year-old male patient being evaluated and examined in the emergency room today. Patient is currently in ICU hold and is waiting for bed. This patient came into the emergency room with chest discomfort and shortness of breath and he has had previous symptoms in the past associated with atrial fibrillation however it did not result in such chest discomfort in the past. Patient states he continues to have heart palpitations. Upon examination in the emergency room the patient was cardioverted for narrow complex tachycardia with hypotension, chest pain and shortness of breath. He was given Versed. After his cardioversion he became bradycardic. Cardiology was paged and was made aware of all events. Patient then stabilized his breathing and heart rate to the low 80s. Patient has been slightly hypotension systolically 80s to 90s over the last few hours. Apparently this patient has been noncompliant with his medications in the past and is well-known to cardiology services. Apparently the patient was supposed to undergo a cardiac ablation and was a no show for the procedure. Upon examination the patient is resting up in bed, on room air denies any cough or sputum production. He states that he can feel palpitations, come and go. Patient is scheduled for a cardiac ablation this afternoon. Patient states he is feeling better and is ready to get the ablation done. Objective - Vital Signs Vital signs: Vital Signs Temp 98 F 11/07/16 08:00 Pulse 55 L 11/07/16 08:00 Resp 17 11/07/16 08:00 BP 101/65 11/07/16 08:00 Pulse Ox 100 11/07/16 08:00 Intake & Output 11/06/16 11/07/16 11/07/16 18:59 06:59 18:59 Intake Total 485 180 Balance 485 180 Weight 72.9 kg Intake: Oral 485 180 Other: Voiding Method Toilet Toilet Toilet # Voids 2 1 - Exam GENERAL EXAM: Alert, active, comfortable in no apparent distress. HEAD: Normocephalic. EYES: Normal reaction of pupils, equal size. NOSE: Clear with pink turbinates. THROAT: No erythema or exudates. NECK: No masses, no JVD. CHEST: No chest wall deformity. LUNGS: Equal air entry with no crackles, wheeze, rhonchi or dullness. CVS: S1 and S2 normal with no audible mumurs, irregular rhythm. ABDOMEN: No hepatosplenomegaly, normal bowel sounds, no guarding or rigidity. EXTREMITIES: No edema noted, pedal pulses palpable. SKIN: No rashes CENTRAL NERVOUS SYSTEM: No focal deficits, tone is normal in all 4 extremities. - Labs CBC & Chem 7: 11/03/16 00:25 11/07/16 06:21 Labs: Abnormal Lab Results - Last 24 Hours (Table) 11/06/16 11/07/16 Range/Units 05:44 06:21 BUN 21 H (9-20) mg/dL TSH 5.890 H (0.465-4.680) mIU/L Assessment and Plan Plan: Assessment Acute hypoxic respiratory failure secondary to cardiac events, tachycardia/ palpitations History of Atrial fibrillation Hypotension Elevated cardiac enzymes Acute on chronic diastolic heart failure Status post emergent cardioversion Renal failure, appears to be acute on chronic Plan Patient cleared from pulmonary standpoint to undergo cardiac ablation. Medications have been reviewed and will be continued as ordered. Continue nebulizer treatments. Patient is scheduled for cardiac ablation this afternoon.. Patient will require an outpatient sleep study and pulmonary function tests. Continue with supplemental oxygen to keep oxygen saturations above 90%. GI and DVT prophylaxis. We will continue to follow clinical course closely along with cardiology. We will continue to monitor labs/results and adjust treatment as necessary. I performed an examination of the patient and discussed their management with the nurse practitioner. I have reviewed the nurse practitioner's note and agree with the documented findings and plan of care.
--- NOTE | 2016-11-07 11:04 | CDI ---
In responding to this query, please exercise your independent professional judgment. The [facility] Coding Staff and Clinical Documentation Specialists appreciate your assistance in clarifying documentation, maintaining compliance with coding guidelines, accurately documenting patients condition and capturing severity of illness. The fact that a question is asked does not imply that any particular answer is desired or expected. Communication forms are a method of clarifying documentation and are not made part of the Legal Health Record. Thank you in advance for your clarification. Last Revision, April 2015 Jose Luis Maya [address] [facility] [address] Documentation Clarification Form Date: 11/07/2016 10:54:00 AM From: Jillian Leos CCS, CCDS Admit Date: 11/03/2016 2:31:00 AM Patient Name: Yannick Roberts Visit Number: [id number] Discharge Date: Dr. Real Howell: History/Risk Factors: 46 yo male, presented with chest pain via EMS with atrial fibrillation, palpitations and SOB. No renal history documented. Patient recently changed PCPs due to insurance per documentation. Current BUN/CR/GFR: BUN 26, Cr 1.70 GFR: 44 on admission. Patients Baseline: BUN/CR/GFR: unknown, not documented, no nephrology consult. Clinical Indicators: Patient had cardioversion performed in ER for Atrial Fibrillation. Treatment: Admit to ICU (overflow), Heparin drip, Telemetry, Blood glucose monitoring, IV fluid rate 100, IV Versed, IV fluid bolus x1, Nebulizer treatments, O2, pending ablation. Consults: Pulmonary/Critical care, Cardiology In order to capture the severity of condition, please clarify if the condition signifies: CKD Stage 1 (GFR > 90) CKD Stage 2 (GFR 60-89) CKD Stage 3 (GFR 30-59) CKD Stage 4 (GFR 15-29) CKD Stage 5 (GFR <15) ESRD Unable to determine Other condition, please specify Please document in your progress notes and discharge summary in order to capture severity of illness and risk of mortality. Include clinical findings that support your diagnosis. FYI: Press F11 to launch patient chart. Place X here if this finding has no clinical significance, is not applicable or if you are not able to provide any additional documentation. Thank You. ANN
[2016-11-07] MEDS: SODIUM CHLORIDE 0.9% 1,000 ML IV SCH (11:15)
[2016-11-07] MEDS ORDERED: FUROSEMIDE 10 MG/ML 2 ML VIAL ONE (14:02)
[2016-11-07] MEDS ORDERED: PROPOFOL 10 MG/ML 20 ML VIAL IV ONE (14:02)
[2016-11-07] MEDS ORDERED: MIDAZOLAM 2 MG/2 ML VIAL ONE (14:02)
[2016-11-07] MEDS ORDERED: ISOPROTERENOL 250 MCG/1.25 ML SYR IV ONE (14:02)
[2016-11-07] MEDS ORDERED: fentaNYL (PF) 50 MCG/ML 2 ML AMP ONE (14:02)
[2016-11-07] MEDS ORDERED: SODIUM CHLORIDE 0.9% 250 ML IV ONE (14:47)
[2016-11-07] MEDS ORDERED: SODIUM CHLORIDE 0.9% 500 ML IV ONE (14:47)
[2016-11-07] MEDS ORDERED: IODIXANOL 320 MG/ML 100 ML IV ONE (14:50)
[2016-11-07] MEDS: LIDOCAINE 2% INJ 20 MG/ML SQ ONE ×2 (14:52→14:58)
[2016-11-07] MEDS ORDERED: HEPARIN SODIUM,PORCINE/D5W PMX 25,000 UNIT in DEXTROSE/WATER 1 500ML.BAG IV ONE (15:17)
[2016-11-07] MEDS ORDERED: HEPARIN SODIUM (1,000 UNIT/ML) 1,000 UNIT in SODIUM CHLORIDE 0.9% 1,000 ML IRRIGATION ONE (15:47)
[2016-11-07] MEDS ORDERED: LACTATED RINGERS 1,000 ML IV ONE ×2 (16:00)
[2016-11-07] MEDS ORDERED: ACETAMINOPHEN TAB 325 MG TAB PO PRN (18:17)
--- NOTE | 2016-11-07 19:47 | PCN ---
DATE OF PROCEDURE: Mr. Yannick Roberts was admitted yet again with recurrent atrial tachycardia. He had already been scheduled for an atrial tachycardia ablation in the next 3 weeks, but he came in again with very asymptomatic atrial tachycardia. He has hypertension with tachycardia. He converted to sinus rhythm spontaneously. I took him to the lab today and performed an EP study and ablation. Patient was brought to the EP lab in a fasting state. Written informed consent was obtained prior to the procedure. He was already on Edoxaban. A 6 Icelandic sheath was placed in the left subclavian vein, and via this decapolar catheter was positioned in the coronary sinus for coronary sinus pacing and recording. The right and left groins were prepped and draped as per protocol and 3 venous sheaths were placed in the groin via the femoral veins, and a femoral arterial sheath was placed for hemodynamic monitoring and sampling. Heparin was started. Diagnostic catheters were placed (high right atrial catheter, His bundle catheter, RV catheter and coronary sinus catheter). Baseline measurements were as follows: sinus cycle length 1( )91 ms, RI interval 316 ms, QRS 87 ms, QT 326 ms. The AH interval was 198 ms, HV interval 60 ms. Sinus node recovery times at 600, 500, 400 ms were ( )03, 1691, and 860 ms. Corresponding corrected sinus node recovery times were prolonged. AV node Wenckebach block 430 ms. VA Wenckebach block 600 ms. Atrial tachycardia was induced with extrastimulation from the high right atrium. Cycle length varied from 400 to 427 ms. The tachycardia was eccentric. However, once Isuprel was started the tachycardia would spontaneously show variation in cycle length as well as become concentric. There was also fluctuation in the electrogram suggesting that were at least 2 and possibly 3 simultaneous tachycardias occurring on Isuprel. Isuprel was then stopped and a decision was made to first proceed with mapping of the tachycardia in the right atrium. The tachycardia was mapped in the right atrium, but because of the variation in the cycle length and the activation pattern, we could not map it, since there was no consistency in the activation pattern. There were at least 2 populations of arrhythmias and possibly a third. Therefore first decision was made to perform an atrial flutter ablation because the concentric atrial tachycardia appeared possibly originating in the cavotricuspid isthmus. An intracardiac echo catheter was placed and 3-D anatomic map of the isthmus was developed. The isthmus had a very large, very thick mid isthmus pedicle. This was a round, thick mass of muscle with a pouch just beneath it on the eustachian ridge side of the isthmus. RF ablation was performed in the isthmus and 35 bang of power was used and a complete anatomic line of block was made. Then the pouch under this large isthmus pedicle was ablated. The tachycardia terminated. After complete ablation, the isthmus conduction time was greater than 190 ms. RF ablation was performed all along the isthmus just under the ridge, and this would result in bursts of tachycardia and then termination, with the suggestion that there was possibly a focal mechanism related to this thick pedicle. When the entire line was complete and the muscle pedicle was ablated, especially underneath near the pouch, the tachycardia was very difficult to induce thereafter. After that, on and off Isuprel, we were able to induce the second tachycardia, but this was non-sustained. Three-D mapping of the right atrium was performed rapidly, but this did not appear to be a right atrial tachycardia. At this point a decision was made not to proceed with left atrial ablation, but to bring him back for pulmonary vein isolation and atrial tachycardia ablation subsequently on the left side for left atrial tachycardias. Intracardiac echocardiography of the left atrium had been performed. There was no intracardiac mass or thrombus noted in the left atrial appendage. The left atrial appendage was large. The left atrium was large. There was smoke in the left atrium. The right-sided pulmonary veins were very large. The right inferior vein was about 21 mm in diameter. The right superior vein was 24 mm in diameter. The left-sided veins were between 17 and 18 mm in diameter each. The left atrium was enlarged. Patient tolerated the procedure well without any acute complications. It was noted that during certain arrhythmias, especially the rapid arrhythmias, his blood pressure would drop to 70 mmHg abruptly and he could not tolerate the atrial arrhythmias, consistent with his diagnosis of hypertrophic cardiomyopathy. All catheters were removed. Arellano catheter was removed. Heparin was stopped. Hemostasis was assured. RESULT: Diagnostic EP study revealing multiple tachycardias, one of which was related to the cava tricuspid isthmus and an RF ablation of the isthmus was performed. Isthmus conduction time greater than 190 ms, but this could possibly also have been an atrial tachycardia from this isthmus in the pouch just under the thick muscle pedicle in the mid isthmus. This was a very thick muscle pedicle noted on intracardiac echo. PLAN: 1. Continue anticoagulation lifelong. 2. Antral isolation of the pulmonary veins and EP study following that to see if he has any other atrial tachycardias.
[2016-11-07] MEDS: METOPROLOL TARTRATE 25 MG TAB PO SCH (21:22)
[2016-11-08] MEDS ORDERED: ADENOSINE 3 MG/ML 2 ML VIAL IVP STA ×2 (00:33→00:36)
[2016-11-08] MEDS ORDERED: DILTIAZEM 125 MG in SODIUM CHLORIDE 0.9% 100 ML IV SCH (01:00)
[2016-11-08] MEDS ORDERED: DEXTROSE 5% IN WATER 250 ML with AMIODARONE 300 MG IV ONE (02:55)
[2016-11-08] MEDS: PANTOPRAZOLE 40 MG TABLET PO SCH (06:40)
[2016-11-08 06:49] LABS: ALT 50 U/L (21-72); AST 44 U/L (17-59); Alkaline Phosphatase 53 U/L (38-126); Anion Gap 9 mmol/L; Blood Urea Nitrogen 20 mg/dL (9-20); Calcium 9.1 mg/dL (8.4-10.2); Carbon Dioxide 25 mmol/L (22-30); Chloride 106 mmol/L (98-107); Glucose 77 mg/dL (74-99); Non-African American GFR(MDRD) >60 (>60 ml/min/1.73 sqM); Phosphorous 3.9 mg/dL (2.5-4.5); Potassium 4.6 mmol/L (3.5-5.1); Sodium 140 mmol/L (137-145); Total Bilirubin 1.1 mg/dL (0.2-1.3); Total Protein 6.8 g/dL (6.3-8.2)
--- NOTE | 2016-11-08 08:08 | P.PN ---
Subjective Principal diagnosis: Atrial tachycardia This is a continue progress note an 46-year-old white male essentially admitted for atrial tachycardia. He is status post EP and ablation yesterday. But he continues to have tachycardia. Multiple tachycardias were noted on his EP study. Some dyspnea on exertion given his heart rate. However no chest pressure per se. No other voiding difficulties. Objective - Vital Signs Vital signs: Vital Signs Temp 98.8 F 11/07/16 23:35 Pulse 135 H 11/08/16 04:00 Resp 18 11/08/16 04:00 BP 98/69 11/08/16 04:00 Pulse Ox 100 11/08/16 04:00 Intake & Output 11/07/16 11/08/16 11/08/16 18:59 06:59 18:59 Intake Total 2389.81 195 Output Total 3800 Balance 2389.81 -3605 Weight 71.8 kg Intake: IV 2089.81 195 Sodium Chloride 0.9% 1, 40 000 ml @ 20 mls/hr IV . Q24H [facility] Rx#:[id number] Intake, IV Titration 120 Amount Sodium Chloride 0.9% 1, 120 000 ml @ 20 mls/hr IV . Q24H [facility] Rx#:[id number] Oral 180 Output: Urine 3800 Uretheral (Arellano) 1300 Other: Voiding Method Toilet Toilet # Voids 0 - Constitutional General appearance: Present: average body habitus - Respiratory Respiratory: bilateral: CTA - Cardiovascular Heart rate: 125 Rhythm: regular Heart sounds: normal: S1, S2 Abnormal Heart Sounds: Absent: systolic murmur - Gastrointestinal General gastrointestinal: Present: soft. Absent: tenderness - Integumentary Integumentary: Absent: cellulitis - Neurologic Neurologic: Present: CNII-XII intact - Labs CBC & Chem 7: 11/03/16 00:25 11/08/16 05:50 Assessment and Plan (1) Atrial fibrillation with RVR Status: Acute (2) Elevated CK-MB level Status: Acute (3) Hyperlipemia Status: Acute (4) Rapid palpitations Status: Acute Plan: Continue current regimen of treatment. Await further cardiology input. The patient is postop day #1 EP study. See orders otherwise.
[2016-11-08] MEDS: ASPIRIN 81 MG CHEW PO SCH (08:28)
[2016-11-08] MEDS: METOPROLOL TARTRATE 25 MG TAB PO SCH (08:29)
[2016-11-08] MEDS: EDOXABAN TOSYLATE 60 MG TABLET PO SCH (08:29)
[2016-11-08] MEDS: IPRATROPIUM-ALBUTEROL 3 ML NEB INHALATION SCH ×4 (09:00→21:46)
--- NOTE | 2016-11-08 11:11 | P.PN ---
Subjective This is a 46-year-old male patient being evaluated and examined in the emergency room today. Patient is currently in ICU hold and is waiting for bed. This patient came into the emergency room with chest discomfort and shortness of breath and he has had previous symptoms in the past associated with atrial fibrillation however it did not result in such chest discomfort in the past. Patient states he continues to have heart palpitations. Upon examination in the emergency room the patient was cardioverted for narrow complex tachycardia with hypotension, chest pain and shortness of breath. He was given Versed. After his cardioversion he became bradycardic. Cardiology was paged and was made aware of all events. Patient then stabilized his breathing and heart rate to the low 80s. Patient has been slightly hypotension systolically 80s to 90s over the last few hours. Apparently this patient has been noncompliant with his medications in the past and is well-known to cardiology services. Apparently the patient was supposed to undergo a cardiac ablation and was a no show for the procedure. Upon examination the patient is resting up in bed, on room air denies any cough or sputum production. He states that he can feel palpitations, come and go. Patient went for a cardiac ablation yesterday. Overnight the patient had runs of V. tach and an 18 was called. Cardiology was notified the patient did receive adenosine 2 with no response. He was then started on a Cardizem and an amiodarone drip. Today the patient is still not feeling well and continues to be tachycardic. Cardiology is currently adjusting medications. Patient becomes short of breath and diaphoretic with his heart palpitations and while he was in SVT overnight. Objective - Vital Signs Vital signs: Vital Signs Temp 98.8 F 11/07/16 23:35 Pulse 130 H 11/08/16 08:15 Resp 16 11/08/16 08:15 BP 98/65 11/08/16 08:15 Pulse Ox 99 11/08/16 08:15 Intake & Output 11/07/16 11/08/16 11/08/16 18:59 06:59 18:59 Intake Total 2389.81 195 118 Output Total 3800 Balance 2389.81 -3605 118 Weight 71.8 kg Intake: IV 2089.81 195 Sodium Chloride 0.9% 1, 40 000 ml @ 20 mls/hr IV . Q24H ON LICENSE OF [facility] Rx#:[id number] Intake, IV Titration 120 Amount Sodium Chloride 0.9% 1, 120 000 ml @ 20 mls/hr IV . Q24H [facility] Rx#:[id number] Oral 180 118 Output: Urine 3800 Uretheral (Arellano) 1300 Other: Voiding Method Toilet Toilet # Voids 0 - Exam GENERAL EXAM: Alert, active, comfortable in no apparent distress. HEAD: Normocephalic. EYES: Normal reaction of pupils, equal size. NOSE: Clear with pink turbinates. THROAT: No erythema or exudates. NECK: No masses, no JVD. CHEST: No chest wall deformity. LUNGS: Equal air entry with no crackles, wheeze, rhonchi or dullness. CVS: S1 and S2 normal with no audible mumurs, irregular rhythm. ABDOMEN: No hepatosplenomegaly, normal bowel sounds, no guarding or rigidity. EXTREMITIES: No edema noted, pedal pulses palpable. SKIN: No rashes CENTRAL NERVOUS SYSTEM: No focal deficits, tone is normal in all 4 extremities. - Labs CBC & Chem 7: 11/03/16 00:25 11/08/16 05:50 Assessment and Plan Plan: Assessment Acute hypoxic respiratory failure secondary to cardiac events, tachycardia/ palpitations History of Atrial fibrillation Hypotension Elevated cardiac enzymes Acute on chronic diastolic heart failure Status post emergent cardioversion Renal failure, appears to be acute on chronic Plan Medications have been reviewed and will be continued as ordered. Continue nebulizer treatments. Patient will require an outpatient sleep study and pulmonary function tests. Continue with supplemental oxygen to keep oxygen saturations above 90%, as the patient becomes symptomatic with his palpitations and SVT.. GI and DVT prophylaxis. We will continue to follow clinical course closely along with cardiology. Cardiology currently adjusting cardiac meds. We will continue to monitor labs/results and adjust treatment as necessary. I performed an examination of the patient and discussed their management with the nurse practitioner. I have reviewed the nurse practitioner's note and agree with the documented findings and plan of care.
[2016-11-08] MEDS ORDERED: METOPROLOL TARTRATE 12.5 MG TAB PO SCH ×2 (13:24→21:00)
[2016-11-08] MEDS ORDERED: AMIODARONE 200 MG TAB PO SCH (13:30)
--- NOTE | 2016-11-08 15:47 | P.PN ---
Subjective Principal diagnosis: SVT This is a 46-year-old gentleman with history of hypertrophic cardiomyopathy and recurrent SVT suggestive of atrial tachycardia. Patient was seen by Dr. Powell on October 24, and recommended that patient have ablation. Patient has history of isolation of the right-sided veins only with atrial tachycardia ablation. Apparently there is history of TIA. Patient had normal coronary arteries in the past. He came to the hospital with complaints of palpitations, shortness of breath and hypotension. Was found to be in SVT, patient had a cardioversion the emergency room. Patient is feeling much better today. His EKG shows a sinus rhythm with diffuse is ST-T changes. 11/08/16 Patient underwent diagnostic EP study revealing multiple tachycardias, he underwent radiofrequency ablation. He will continue on anticoagulation lifelong. Antral isolation of the pulmonary veins an EP study will be performed following that to see if the patient has any further atrial tachycardia's. At the time of my examination today, patient again went into atrial tachycardia with rapid ventricular response. We will give him a 300 mg of amiodarone IV bolus and start him on a drip at 1 mg. DNP note has been reviewed, I agree with a documented findings and plan of care. Patient was seen and examined. Objective - Vital Signs Vital signs: Vital Signs Temp 98.3 F 11/08/16 12:00 Pulse 170 H 11/08/16 15:31 Resp 18 11/08/16 15:31 BP 76/58 11/08/16 15:31 Pulse Ox 100 11/08/16 15:31 Intake & Output 11/07/16 11/08/16 11/08/16 18:59 06:59 18:59 Intake Total 2389.81 195 340 Output Total 3800 Balance 2389.81 -3605 340 Weight 71.8 kg Intake: IV 2089.81 195 Sodium Chloride 0.9% 1, 40 000 ml @ 20 mls/hr IV . Q24H [facility] Rx#:[id number] Intake, IV Titration 120 Amount Sodium Chloride 0.9% 1, 120 000 ml @ 20 mls/hr IV . Q24H [facility] Rx#:[id number] Oral 180 340 Output: Urine 3800 Uretheral (Arellano) 1300 Other: Voiding Method Toilet Toilet # Voids 0 1 - Labs CBC & Chem 7: 11/03/16 00:25 11/08/16 05:50 Assessment and Plan (1) Paroxysmal a-fib Status: Acute (2) Encounter for cardioversion procedure Status: Acute (3) Atrial tachycardia Status: Acute (4) History of TIA (transient ischemic attack) Status: Acute (5) Hypertrophic cardiomyopathy Status: Acute (6) Hypotension Status: Acute (7) Hyperlipemia Status: Acute (8) Hypothyroid Status: Acute (9) Supraventricular tachycardia Status: Acute
[2016-11-08] MEDS ORDERED: DEXTROSE 5% IN WATER 100 ML with AMIODARONE 300 MG IV ONE (16:00)
[2016-11-08] MEDS: AMIODARONE 450 MG in DEXTROSE 5% IN WATER 250 ML IV SCH ×2 (16:38)
[2016-11-09] MEDS: AMIODARONE 450 MG in DEXTROSE 5% IN WATER 250 ML IV SCH ×6 (01:44→16:54)
[2016-11-09] MEDS: PANTOPRAZOLE 40 MG TABLET PO SCH (06:08)
[2016-11-09 06:45] LABS: ALT 37 U/L (21-72); AST 31 U/L (17-59); Alkaline Phosphatase 54 U/L (38-126); Anion Gap 12 mmol/L; Blood Urea Nitrogen 17 mg/dL (9-20); Calcium 9.3 mg/dL (8.4-10.2); Carbon Dioxide 21 mmol/L (22-30); Chloride 107 mmol/L (98-107); Glucose 99 mg/dL (74-99); Non-African American GFR(MDRD) >60 (>60 ml/min/1.73 sqM); Potassium 4.5 mmol/L (3.5-5.1); Sodium 140 mmol/L (137-145); Total Protein 6.8 g/dL (6.3-8.2)
[2016-11-09] MEDS: IPRATROPIUM-ALBUTEROL 3 ML NEB INHALATION SCH ×4 (08:17→21:11)
[2016-11-09] MEDS: ASPIRIN 81 MG CHEW PO SCH (08:38)
[2016-11-09] MEDS: EDOXABAN TOSYLATE 60 MG TABLET PO SCH (08:38)
--- NOTE | 2016-11-09 08:42 | P.PN ---
Subjective Principal diagnosis: Atrial tachycardia This is a continue progress note an 46-year-old white male essentially admitted for atrial tachycardia. He is status post EP and ablation yesterday. But he continues to have tachycardia. Multiple tachycardias were noted on his EP study. Some dyspnea on exertion given his heart rate. However no chest pressure per se. No other voiding difficulties. Otherwise, he is scheduled for another EP study. Amiodarone is seemingly improving symptom otology. Objective - Vital Signs Vital signs: Vital Signs Temp 97.3 F L 11/09/16 08:37 Pulse 86 11/09/16 08:37 Resp 16 11/09/16 08:37 BP 100/74 11/09/16 08:37 Pulse Ox 99 11/09/16 08:37 Intake & Output 11/08/16 11/09/16 11/09/16 18:59 06:59 18:59 Intake Total 340 409.000 Balance 340 409.000 Weight 71.2 kg Intake: IV 150 Amiodarone 450 mg In 150 Dextrose 5% in Water 250 ml @ 1 MG/MIN 34.53 mls/ hr IV .Q7H31M [facility] Rx#: [id number] Intake, IV Titration 259.000 Amount Amiodarone 450 mg In 259.000 Dextrose 5% in Water 250 ml @ 1 MG/MIN 34.53 mls/ hr IV .Q7H31M [facility] Rx#: [id number] Oral 340 Other: Voiding Method Toilet # Voids 1 - Constitutional General appearance: Present: average body habitus - Respiratory Respiratory: bilateral: CTA - Cardiovascular Heart rate: 95 Abnormal Heart Sounds: Absent: systolic murmur - Gastrointestinal General gastrointestinal: Present: soft. Absent: tenderness - Neurologic Neurologic: Present: CNII-XII intact. Absent: focal deficits - Labs CBC & Chem 7: 11/03/16 00:25 11/09/16 05:43 Labs: Abnormal Lab Results - Last 24 Hours (Table) 11/09/16 Range/Units 05:43 Carbon Dioxide 21 L (22-30) mmol/L Assessment and Plan (1) Atrial fibrillation with RVR Status: Acute (2) Elevated CK-MB level Status: Acute (3) Hyperlipemia Status: Acute (4) Rapid palpitations Status: Acute Plan: Await cardiology workup. Continue amiodarone. See orders otherwise.
[2016-11-09 10:09] VITALS: BMI 26.1
--- NOTE | 2016-11-09 10:33 | P.PN ---
Subjective This is a 46-year-old male patient being evaluated and examined in the emergency room today. Patient is currently in ICU hold and is waiting for bed. This patient came into the emergency room with chest discomfort and shortness of breath and he has had previous symptoms in the past associated with atrial fibrillation however it did not result in such chest discomfort in the past. Patient states he continues to have heart palpitations. Upon examination in the emergency room the patient was cardioverted for narrow complex tachycardia with hypotension, chest pain and shortness of breath. He was given Versed. After his cardioversion he became bradycardic. Cardiology was paged and was made aware of all events. Patient then stabilized his breathing and heart rate to the low 80s. Patient has been slightly hypotension systolically 80s to 90s over the last few hours. Apparently this patient has been noncompliant with his medications in the past and is well-known to cardiology services. Apparently the patient was supposed to undergo a cardiac ablation and was a no show for the procedure in the outpatient setting. Upon examination the patient is resting up in bed, on room air denies any cough or sputum production. Today the patient is doing much better and had no overnight events. Currently the patient is on an amiodarone drip. Objective - Vital Signs Vital signs: Vital Signs Temp 97.3 F L 11/09/16 08:37 Pulse 86 11/09/16 08:37 Resp 16 11/09/16 08:37 BP 100/74 11/09/16 08:37 Pulse Ox 99 11/09/16 08:37 Intake & Output 11/08/16 11/09/16 11/09/16 18:59 06:59 18:59 Intake Total 340 409.000 118 Balance 340 409.000 118 Weight 71.2 kg 71.2 kg Intake: IV 150 Amiodarone 450 mg In 150 Dextrose 5% in Water 250 ml @ 1 MG/MIN 34.53 mls/ hr IV .Q7H31M [facility] Rx#: [id number] Intake, IV Titration 259.000 Amount Amiodarone 450 mg In 259.000 Dextrose 5% in Water 250 ml @ 1 MG/MIN 34.53 mls/ hr IV .Q7H31M [facility] Rx#: [id number] Oral 340 118 Other: Voiding Method Toilet Toilet # Voids 1 - Exam GENERAL EXAM: Alert, active, comfortable in no apparent distress. HEAD: Normocephalic. EYES: Normal reaction of pupils, equal size. NOSE: Clear with pink turbinates. THROAT: No erythema or exudates. NECK: No masses, no JVD. CHEST: No chest wall deformity. LUNGS: Equal air entry with no crackles, wheeze, rhonchi or dullness. Bases diminished CVS: S1 and S2 normal with no audible mumurs, irregular rhythm. ABDOMEN: No hepatosplenomegaly, normal bowel sounds, no guarding or rigidity. EXTREMITIES: No edema noted, pedal pulses palpable. SKIN: No rashes CENTRAL NERVOUS SYSTEM: No focal deficits, tone is normal in all 4 extremities. - Labs CBC & Chem 7: 11/03/16 00:25 11/09/16 05:43 Labs: Abnormal Lab Results - Last 24 Hours (Table) 11/09/16 Range/Units 05:43 Carbon Dioxide 21 L (22-30) mmol/L Assessment and Plan Plan: Assessment Acute hypoxic respiratory failure secondary to cardiac events, tachycardia/ palpitations History of Atrial fibrillation Hypotension Elevated cardiac enzymes Acute on chronic diastolic heart failure Status post emergent cardioversion Renal failure, appears to be acute on chronic Plan Medications have been reviewed and will be continued as ordered. Continue nebulizer treatments. Patient will require an outpatient sleep study and pulmonary function tests. Continue with supplemental oxygen to keep oxygen saturations above 90%, as the patient becomes symptomatic with his palpitations and SVT.. GI and DVT prophylaxis. We will continue to follow clinical course closely along with cardiology. Cardiology currently adjusting cardiac meds. We will continue to monitor labs/results and adjust treatment as necessary. I performed an examination of the patient and discussed their management with the nurse practitioner. I have reviewed the nurse practitioner's note and agree with the documented findings and plan of care.
--- NOTE | 2016-11-09 14:57 | P.PN ---
Subjective Principal diagnosis: SVT This is a 46-year-old gentleman with history of hypertrophic cardiomyopathy and recurrent SVT suggestive of atrial tachycardia. Patient was seen by Dr. Powell on October 24, and recommended that patient have ablation. Patient has history of isolation of the right-sided veins only with atrial tachycardia ablation. Apparently there is history of TIA. Patient had normal coronary arteries in the past. He came to the hospital with complaints of palpitations, shortness of breath and hypotension. Was found to be in SVT, patient had a cardioversion the emergency room. Patient is feeling much better today. His EKG shows a sinus rhythm with diffuse is ST-T changes. 11/08/16 Patient underwent diagnostic EP study revealing multiple tachycardias, he underwent radiofrequency ablation. He will continue on anticoagulation lifelong. Antral isolation of the pulmonary veins an EP study will be performed following that to see if the patient has any further atrial tachycardia's. At the time of my examination today, patient again went into atrial tachycardia with rapid ventricular response. We will give him a 300 mg of amiodarone IV bolus and start him on a drip at 1 mg. 11/09/2016 Patient's heart rate today is under much better control. He continues to be on the IV amiodarone and Lopressor we'll continue to be on hold. Once the IV amiodarone has infuse, we will start the patient on amiodarone 400 mg one tablet by mouth daily. Objective - Vital Signs Vital signs: Vital Signs Temp 97.3 F L 11/09/16 08:37 Pulse 86 11/09/16 12:25 Resp 12 11/09/16 12:25 BP 115/73 11/09/16 12:25 Pulse Ox 100 11/09/16 12:25 Intake & Output 11/08/16 11/09/16 11/09/16 18:59 06:59 18:59 Intake Total 340 409.000 394 Balance 340 409.000 394 Weight 71.2 kg 71.2 kg Intake: IV 150 276 Amiodarone 450 mg In 150 276 Dextrose 5% in Water 250 ml @ 1 MG/MIN 34.53 mls/ hr IV .Q7H31M [facility] Rx#: [id number] Intake, IV Titration 259.000 Amount Amiodarone 450 mg In 259.000 Dextrose 5% in Water 250 ml @ 1 MG/MIN 34.53 mls/ hr IV .Q7H31M [facility] Rx#: [id number] Oral 340 118 Other: Voiding Method Toilet Toilet # Voids 1 3 - Exam PHYSICAL EXAMINATION: HEENT: Head is atraumatic, normocephalic. Pupils equal, round. Neck is supple. There is no elevated jugular venous pressure. HEART EXAMINATION: Heart S1, S2 normal. No murmur or gallop heard. CHEST EXAMINATION: Lungs are clear to auscultation and precussion. No chest wall tenderness is noted on palpation or with deep breathing. ABDOMEN: Soft, nontender. Bowel sounds are heard. No organomegaly noted. Right and left groin soft, no hematoma, left subclavian site clean and dry. EXTREMITIES: 2+ peripheral pulses with no evidence of peripheral edema and no calf tenderness noted. NEUROLOGIC patient is awake, alert and oriented -3. . - Labs CBC & Chem 7: 11/03/16 00:25 11/09/16 05:43 Labs: Abnormal Lab Results - Last 24 Hours (Table) 11/09/16 Range/Units 05:43 Carbon Dioxide 21 L (22-30) mmol/L Assessment and Plan (1) Paroxysmal a-fib Status: Acute (2) Encounter for cardioversion procedure Status: Acute (3) Atrial tachycardia Status: Acute (4) History of TIA (transient ischemic attack) Status: Acute (5) Hypertrophic cardiomyopathy Status: Acute (6) Hypotension Status: Acute (7) Hyperlipemia Status: Acute (8) Hypothyroid Status: Acute (9) Supraventricular tachycardia Status: Acute (10) S/P ablation of atrial flutter Status: Acute Plan: From cardiology's perspective, we will continue current medications. Metoprolol tartrate is on hold. Once the IV amiodarone has infuse, we will start the patient on amiodarone 400 mg one tablet daily. DNP note has been reviewed, I agree with a documented findings and plan of care. Patient was seen and examined.
[2016-11-09] MEDS: AMIODARONE 200 MG TAB PO SCH (16:49)
[2016-11-09 20:00] VITALS: RESP 16
[2016-11-10] MEDS: PANTOPRAZOLE 40 MG TABLET PO SCH (06:18)
[2016-11-10] MEDS: IPRATROPIUM-ALBUTEROL 3 ML NEB INHALATION SCH (07:49)
--- NOTE | 2016-11-10 08:08 | P.DS ---
Providers Date of admission: 11/03/16 02:31 Attending physician: Yony Sage Consults: 11/03/16 02:31 Consult Physician Urgent Consulting Provider: Real Howell Consult Reason/Comments: Critical care Do you want consulting provider notified?: Yes Consult Physician Urgent Consulting Provider: Fausto Tuttle Consult Reason/Comments: Unstable A. fib Do you want consulting provider notified?: Already Contacted Primary care physician: Yony Sage - Discharge Diagnosis(es) (1) Atrial fibrillation with RVR Current Visit: No Status: Acute (2) Elevated CK-MB level Current Visit: No Status: Acute (3) Hyperlipemia Current Visit: No Status: Acute (4) Rapid palpitations Current Visit: No Status: Acute Hospital Course: This discharge summary 46-year-old white male essentially admitted for atrial tachycardia with history of atrial fibrillation. The patient essentially ended up having to EP procedures during this hospitalization and is now off of amiodarone drip on oral amiodarone with heart rate that is stable. When cleared by cardiology, he'll be discharged in stable condition to follow-up with me in approximately one week. His heart rate now stable and he is not having any significant chest pain/palpitations or dizziness. The patient is ambulating tolerate diet appropriately. Patient Condition at Discharge: Stable Plan - Discharge Summary New Discharge Prescriptions: Amiodarone [Cordarone] 400 mg PO DAILY #30 tab Nitroglycerin Sl Tabs [Nitrostat] 0.4 mg SUBLINGUAL Q5M PRN #50 tab PRN Reason: Chest Pain Discharge Medication List Edoxaban Tosylate [Savaysa] 60 mg PO DAILY 11/17/15 [History] Corning 150 Mg 150 mg PO DAILY 10/24/16 [History] Lutein 10 mg PO DAILY 10/24/16 [History] Magnesium Oxide [Mag-Ox] 250 mg PO DAILY 10/24/16 [History] [place]-3 Fatty Acids/Fish Oil [Fish Oil 1,000 mg Softgel] 1 cap PO DAILY [History] Potassium 99 mg PO DAILY 10/24/16 [History] Mallory's Wort 300 mg PO DAILY 10/24/16 [History] Metoprolol Tartrate [Lopressor] 50 mg PO BID 11/03/16 [History] Amiodarone [Cordarone] 400 mg PO DAILY #30 tab 11/10/16 [Rx] Aspirin 81 mg PO DAILY 11/10/16 [Rx] Nitroglycerin Sl Tabs [Nitrostat] 0.4 mg SUBLINGUAL Q5M PRN #50 tab 11/10/16 [Rx ] Follow up Appointment(s)/Referral(s): Real Howell MD [STAFF PHYSICIAN] - 1 Week Yony Sage MD [Primary Care Provider] - 3 Days Discharge Disposition: HOME SELF-CARE
[2016-11-10] MEDS: AMIODARONE 200 MG TAB PO SCH (09:03)
[2016-11-10] MEDS: EDOXABAN TOSYLATE 60 MG TABLET PO SCH (09:03)
[2016-11-10] MEDS: ASPIRIN 81 MG CHEW PO SCH (09:03)
[2016-11-10 09:35] VITALS: BP 108/72; PULSE 89; TEMP 97.6
== END 2016-11-10 09:36 | disposition home or self-care (01) | DRG 273 ==
LOC: EC 00:14 → 6ICU 02:31 → 6SEL 14:19
PROVIDERS: ADMIT Family Medicine; ATTEND Family Medicine
PROC: 02583ZZ Destruction of Conduction Mechanism, Percutaneous Approach (ICD-10-PCS; principal; 2016-11-07 14:30)
PROC: 4A023FZ Measurement of Cardiac Rhythm, Percutaneous Approach (ICD-10-PCS; 2016-11-07 14:30)
PROC: 4A0234Z Measurement of Cardiac Electrical Activity, Percutaneous Approach (ICD-10-PCS; 2016-11-07 14:30)
PROC: 02K83ZZ Map Conduction Mechanism, Percutaneous Approach (ICD-10-PCS; 2016-11-07 14:30)
DX: I48.0 Paroxysmal atrial fibrillation (principal); I50.33 Acute on chronic diastolic (congestive) heart failure; J96.01 Acute respiratory failure with hypoxia; I47.2 Ventricular tachycardia; J84.9 Interstitial pulmonary disease, unspecified; I42.2 Other hypertrophic cardiomyopathy; I13.0 Hypertensive heart and chronic kidney disease with heart failure and stage 1 through stage 4 chronic kidney disease, or unspecified chronic kidney disease; J84.10 Pulmonary fibrosis, unspecified; I47.1 Supraventricular tachycardia; I48.92 Unspecified atrial flutter; E78.5 Hyperlipidemia, unspecified; I34.0 Nonrheumatic mitral (valve) insufficiency; E03.9 Hypothyroidism, unspecified; E78.00 Pure hypercholesterolemia, unspecified; F41.9 Anxiety disorder, unspecified; N18.9 Chronic kidney disease, unspecified; Z91.14 Patient's other noncompliance with medication regimen; Z86.73 Personal history of transient ischemic attack (TIA), and cerebral infarction without residual deficits; Z79.01 Long term (current) use of anticoagulants; Z79.899 Other long term (current) drug therapy; Z82.49 Family history of ischemic heart disease and other diseases of the circulatory system
CPT/HCPCS: 36415; 71010; 80053; 80061; 81001; 82550; 82553; 83735; 84100; 84439; 84443; 84481; 84484; 85025; 85610; 85730; 87086; 93005; 93613; 93623; 93653; 93662; 96361; 96365; 96366; 96375; 96376; 99291

== ENCOUNTER → 2017-01-23 | Outpatient (CLI) | payer BC ==
--- NOTE | 2017-01-23 17:38 | XR ---
EXAMINATION TYPE: XR chest 2V DATE OF EXAM: 01/23/2017 COMPARISON: 11/03/2016 HISTORY: Cough for a few days TECHNIQUE: Frontal and lateral views of the chest are obtained. FINDINGS: Heart is enlarged. There is coarse interstitial pulmonary density. There is very slight bl unting of costophrenic angles. There are no hilar masses. Bony thorax is intact. IMPRESSION: There is new pulmonary interstitial infiltrates and pleural minimal fluid compared to ol d exam. This could be congestive heart failure.
== END | disposition home or self-care (01) ==
LOC: RADXRMAIN 17:13
PROVIDERS: ATTEND Family Medicine
DX: J90 Pleural effusion, not elsewhere classified (principal); R91.8 Other nonspecific abnormal finding of lung field
CPT/HCPCS: 71020

== ENCOUNTER → 2017-02-27 | Outpatient (CLI) | payer BC ==
[2017-02-27 17:48] LABS: CH 28.4; CHCM 32.6; HCT 41.1 % (39.0-53.0); HDW 2.64; HGB 13.1 gm/dL (13.0-17.5); MCH 27.8 pg (25.0-35.0); MCHC 31.8 g/dL (31.0-37.0); MCV 87.4 fL (80.0-100.0); Mean Platelet Volume 7.3; RDW 14.8 % (11.5-15.5); WBC 8.5 k/uL (3.8-10.6)
[2017-02-27 17:54] LABS: Anion Gap 8 mmol/L; Blood Urea Nitrogen 18 mg/dL (9-20); Calcium 9.3 mg/dL (8.4-10.2); Carbon Dioxide 29 mmol/L (22-30); Chloride 103 mmol/L (98-107); Glucose 79 mg/dL (74-99); Non-African American GFR(MDRD) >60 (>60 ml/min/1.73 sqM); Potassium 4.3 mmol/L (3.5-5.1); Sodium 140 mmol/L (137-145)
== END | disposition home or self-care (01) ==
LOC: LABWHC1 17:20
PROVIDERS: ATTEND Internal Medicine Clinical Cardiac Electrophysiology
DX: I48.0 Paroxysmal atrial fibrillation (principal); I42.1 Obstructive hypertrophic cardiomyopathy
CPT/HCPCS: 36415; 80048; 85027

== ENCOUNTER 2017-03-06 06:01 | Day surgery (SDC) | payer BC ==
[2017-03-05 13:23] VITALS: BMI 25.7
[2017-03-06] MEDS: SODIUM CHLORIDE 0.9% 1,000 ML IV SCH ×2 (06:27→23:45)
[2017-03-06] MEDS ORDERED: HEPARIN SODIUM,PORCINE 10,000 UNIT/ML 1 ML VIAL ONE (07:26)
[2017-03-06] MEDS ORDERED: MIDAZOLAM 2 MG/2 ML VIAL ONE (07:26)
[2017-03-06] MEDS ORDERED: PHENYLEPHRINE-0.9% NACL SYG 1 MG/10 ML SYRINGE ONE (07:26)
[2017-03-06] MEDS ORDERED: ONDANSETRON 4 MG/2 ML VIAL ONE (07:26)
[2017-03-06] MEDS ORDERED: DEXAMETHASONE SOD PHOS (MDV) 100 MG/10 ML VIAL ONE (07:26)
[2017-03-06] MEDS ORDERED: PROPOFOL 10 MG/ML 20 ML VIAL IV ONE (07:26)
[2017-03-06] MEDS ORDERED: SUCCINYLCHOLINE CHLORIDE 100 MG/5 ML SYR IV ONE (07:26)
[2017-03-06] MEDS ORDERED: PROTAMINE SULFATE 10 MG/ML 5 ML VIAL IV ONE (07:26)
[2017-03-06] MEDS ORDERED: LIDOCAINE 1% INJ 10MG/ML (20 ML MDV) ONE (07:26)
[2017-03-06] MEDS ORDERED: fentaNYL (PF) 50 MCG/ML 2 ML AMP ONE (07:26)
[2017-03-06] MEDS ORDERED: LIDOCAINE 2% INJ 20 MG/ML SQ ONE (08:29)
[2017-03-06] MEDS ORDERED: HEPARIN SODIUM,PORCINE/D5W PMX 25,000 UNIT in DEXTROSE/WATER 1 500ML.BAG IV ONE (08:42)
[2017-03-06] MEDS ORDERED: HEPARIN SODIUM (1,000 UNIT/ML) 1,000 UNIT in SODIUM CHLORIDE 0.9% 1,000 ML IRRIGATION ONE (09:00)
[2017-03-06] MEDS ORDERED: IOHEXOL 350 MG/ML 100 ML BOTTLE INJ ONE (13:57)
[2017-03-06] MEDS ORDERED: SODIUM CHLORIDE 0.9% 1,000 ML IV ONE (14:00)
[2017-03-06] MEDS ORDERED: ACETAMINOPHEN TAB 325 MG TAB PO PRN (15:29)
[2017-03-06] MEDS ORDERED: ACETAMINOPHEN IV (For NPO) 1,000 MG in EMPTY BAG 1 BAG IVPB ONE (15:29)
--- NOTE | 2017-03-06 15:29 | P.PCN ---
Preoperative Diagnosis: Procedures performed ([facility] - CRYO Ablation) Invasive hemodynamic monitoring while general anesthesia, right femoral arterial line for monitoring and sampling Comprehensive diagnostic EP study with attempted arrhythmia induction CS pacing and recording 3-D mapping Intracardiac echocardiography Pulmonary vein isolation with transseptal and comprehensive EPS, 12911 With the CARTO system and 3-D mapping RF ablation and isolation of the left atrial appendage RF ablation and mitral isthmus line/linear ablation RF ablation and focal ablation of Vein of Carlos tachycardia Procedure details Patient was brought to the EP lab in a fasting state. Written informed consent was obtained prior to the procedure. Procedure performed under general anesthesia After initial muscle relaxant use, muscle relaxants were not given thereafter in order to assess phrenic nerve during procedure Patient prepped and draped as per protocol Full cryo-set up with standard preparation of the cryoablation tools done Femoral Venous access obtained on the right and left groins Sheaths placed Diagnostic catheters for the high right atrium, phrenic nerve stimulation and pacing, His bundle, RV and coronary sinus placed Intracardiac echo catheter placed Long sheath placed in the right atrium Left and right transseptal catheterization performed under intracardiac echo guidance Intravenous heparin with aCT above 300 Later, catheter positioning and balloon positioning under intracardiac echo Baseline measurements Sinus cycle length 980 ms QRS 120 ms QT 463 ms, AH 56, HV 46 Comprehensive diagnostic EP study with drug infusion Atrial pacing performed from the high right atrium and the coronary sinus Sinus recovery 1467 AV node Wenckebach block 500 ms Slow pathway conduction at 530 ms Transseptal catheterization performed RA pressure 13/9/11 LA pressure is 23/9/16 Transseptal catheterization performed with standard sheath. The cryoablation sheath was then placed with an over the wire exchange without any acute complications. All 4 pulmonary veins were isolated in the following sequence: Left superior followed by left inferior followed by right superior followed by right inferior The cryo-ablation balloon was placed at the os of each vein 1.5 mL of IV dye was injected to confirm an occluded vein Goal during cryoablation was to achieve -30C in the first 30 seconds. If not the balloon was repositioned to obtain this result After completion of Cryoblation with durations from 180-240 seconds, entrance block was confirmed with the Attain circular catheter in a roving fashion around the antrum of the pulmonary veins Phrenic nerve pacing was performed from the SVC, right innominate vein area and diaphragm voltage was monitored as well as manually Left superior pulmonary vein Successful isolation of the vein and this was rendered quiescent and later checked with 3-D mapping/CARTO Left inferior pulmonary vein Successful isolation of the vein and this was rendered quiescent and later checked with 3-D mapping/CARTO Right superior pulmonary vein, during phrenic nerve pacing Successful isolation of the vein and this was rendered quiescent and later checked with 3-D mapping/CARTO Right inferior pulmonary vein, during phrenic nerve pacing Successful isolation of the vein and this was rendered quiescent and later checked with 3-D mapping/CARTO At the end of the procedure the 3-D mapping, activation mapping was performed to prove entrance block in all 4 veins Phrenic nerve stimulation was performed to confirm diaphragmatic stimulation the end of the procedure Cine fluoroscopy was performed at the very end of the procedure to confirm movement of both diaphragms with inspiration and expiration The cryoablation sheath was removed and replaced with a standard RF ablation sheath, heart span 55 Patient was in the atrial tachycardia after isolation of the veins, CS activation lateral to medial, negative T-wave in lead 1, negative in inferior leads mostly upright in V1 Slow cycle length 3-D mapping of the left atrium showed that the veins were quiescent. Earliest activation in the left atrial appendage, broad area of activation Complete isolation of the left atrial appendage and isolation was confirmed with disassociated signals within the appendage Linear ablation, mitral isthmus line made Gradual slowing of the tachycardia and then changed in its activation pattern noted Repeat 3-D mapping performed. Coronary sinus mapped, Focal arrhythmia in the range of the lower end of it between the lower pole of the left inferior pulmonary vein and the left atrial appendage. Termination of the tachycardia with RF ablation here. This is most likely Rex Carlos tachycardia. However sometime later as more RF lesions were delivered, the tachycardia resumes with a slightly different activation pattern. CS activation was always lateral to medial At the end of the procedure the patient was extubated Heparin was reversed Venous sheaths were removed and hemostasis assured Result Successful pulmonary vein isolation using cryo-ablation Complete entrance block in all 4 veins confirmed No evidence for phrenic nerve injury Linear ablation around the left atrial appendage, left atrial appendage isolation successful Linear ablation mitral isthmus, successful Focal ablation of Vein of Carlos tachycardia in the isthmus, successful but tachycardia reinitiated with a slightly different CS activation pattern Plan Reduce amiodarone to 100 mg by mouth daily Lifelong anticoagulation Postoperative Diagnosis: Procedure(s) Performed: Implants: Anesthesia: GETA Disposition: floor Indications for Procedure: Operative Findings: Description of Procedure:
[2017-03-06 15:55] LABS: Glucose,Whole Blood 105 mg/dL (75-99)
[2017-03-07 08:08] VITALS: PULSE 73
--- NOTE | 2017-03-07 08:16 | P.DS ---
Providers Attending physician: Won Powell Primary care physician: Yony Sage Pertinent Studies: Patient is doing well. No chest discomfort dizziness lightheadedness no shortness of breath. He maintains sinus rhythm. Twelve-lead ECG shows sinus rhythm with a prolonged NH interval of about 300 ms which is at his baseline Groins have healed well no hematoma no bruising no bleeding minimal to no pain Heart sounds S1 and S2 are normal I don't hear any murmurs no gallops no rubs abdomen is soft nontender Breath sounds are clear no rhonchi no crackles Extremities warm no edema Heart rates in the 70s, vitals stable, afebrile Impression Hypertrophic cardiomyopathy Atrial fibrillation Status post antral isolation of the pulmonary veins with cryoablation Left atrial appendage tachycardia, successful RF ablation Mitral isthmus linear ablation Focal atrial tachycardia, Vein of Carlos tachycardia, partial success, tachycardia terminated with RF and after some time came back at a slower rate High ELSIE VASC score Plan Discharge home today after checking electrolytes and ambulate in the hallways, groin check in about a week's time and follow with Dr. Hankins in about 6 weeks. Prior Holter monitor Lifelong anticoagulation for stroke prevention Discussed this with the patient and with his nurse Reduce amiodarone to 100 mg by mouth daily Plan - Discharge Summary New Discharge Prescriptions: No Action RX: Edoxaban Tosylate [Savaysa] 60 mg PO DAILY RX: Nitroglycerin Sl Tabs [Nitrostat] 0.4 mg SUBLINGUAL Q5M PRN #50 tab PRN Reason: Chest Pain RX: Aspirin 81 mg PO Q72H RX: Amiodarone [Cordarone] 200 mg PO DAILY Discharge Medication List RX: Edoxaban Tosylate [Savaysa] 60 mg PO DAILY 11/17/15 [History] RX: Nitroglycerin Sl Tabs [Nitrostat] 0.4 mg SUBLINGUAL Q5M PRN #50 tab [Rx] RX: Amiodarone [Cordarone] 200 mg PO DAILY 03/05/17 [History] RX: Aspirin 81 mg PO Q72H 03/05/17 [History]
[2017-03-07] MEDS ORDERED: ASPIRIN 81 MG PO SCH (09:00)
[2017-03-07] MEDS ORDERED: AMIODARONE 200 MG TAB PO SCH (09:00)
[2017-03-07] MEDS ORDERED: EDOXABAN TOSYLATE 60 MG TABLET PO SCH (09:00)
[2017-03-07] MEDS ORDERED: AMIODARONE 100 MG TAB PO SCH (09:00)
[2017-03-07 09:29] LABS: Anion Gap 14 mmol/L; Blood Urea Nitrogen 17 mg/dL (9-20); Calcium 9.2 mg/dL (8.4-10.2); Carbon Dioxide 22 mmol/L (22-30); Chloride 101 mmol/L (98-107); Glucose 179 mg/dL (74-99); Magnesium 1.8 mg/dL (1.6-2.3); Non-African American GFR(MDRD) >60 (>60 ml/min/1.73 sqM); Potassium 4.9 mmol/L (3.5-5.1); Sodium 137 mmol/L (137-145)
[2017-03-07] MEDS ORDERED: MAGNESIUM SULFATE-D5W PMX 1 GM in DEXTROSE/WATER 1 100ML.BAG IVPB ONE (12:00)
[2017-03-07 12:24] VITALS: BP 105/74; RESP 18; TEMP 97.3
== END 2017-03-07 14:06 | disposition home or self-care (01) ==
LOC: CATHEP 06:01 → 6SEL 13:51 → CATHEP 03-07 14:06
PROVIDERS: ATTEND Internal Medicine Clinical Cardiac Electrophysiology
DX: I48.0 Paroxysmal atrial fibrillation (principal); I42.1 Obstructive hypertrophic cardiomyopathy; I47.1 Supraventricular tachycardia; I44.0 Atrioventricular block, first degree; R94.31 Abnormal electrocardiogram [ECG] [EKG]; E78.5 Hyperlipidemia, unspecified; I50.20 Unspecified systolic (congestive) heart failure; E07.9 Disorder of thyroid, unspecified; Z86.73 Personal history of transient ischemic attack (TIA), and cerebral infarction without residual deficits; Z79.01 Long term (current) use of anticoagulants; Z79.899 Other long term (current) drug therapy
CPT/HCPCS: 85347; 93662; 93613; 93656; 93657; 80048; 83735; C1894 ×3; C1769 ×4; C1730 ×2; C1731; C1759; C1893; C1733; C1766; C1732; J2001 ×2; J2250; J2720; J1644 ×3; Q9967; J2405; J3010; J3475; J1100; J2370; J0330; J2704